=== PATIENT | male | born 1960 | race Caucasian/White ===

== ENCOUNTER 2016-08-29 09:54 | Inpatient (IN) | payer BC ==
[~2016-08-29 09:54] MED LIST: LACTATED RINGERS 1,000 ML IV SCH; SODIUM CHLORIDE 0.9% 1,000 ML IV SCH
[2016-08-29] MEDS ORDERED: HEPARIN SODIUM 1,000 UN/ML (10ML VL) ONE (12:33)
[2016-08-29] MEDS ORDERED: PHENYLEPHRINE-0.9% NACL SYG 1 MG/10 ML SYRINGE ONE (12:33)
[2016-08-29] MEDS ORDERED: fentaNYL (PF) 50 MCG/ML 2 ML AMP ONE (12:33)
[2016-08-29] MEDS ORDERED: MIDAZOLAM 2 MG/2 ML VIAL ONE (12:33)
[2016-08-29] MEDS ORDERED: ISOPROTERENOL 250 MCG/1.25 ML SYR IV ONE (12:33)
[2016-08-29] MEDS ORDERED: PROTAMINE SULFATE 10 MG/ML 5 ML VIAL IV ONE (12:33)
[2016-08-29] MEDS ORDERED: HYDROmorphone (PF) 1 MG/ML ONE (12:33)
[2016-08-29] MEDS ORDERED: HEPARIN SODIUM,PORCINE 10,000 UNIT/ML 1 ML VIAL ONE (12:33)
[2016-08-29] MEDS ORDERED: PROPOFOL 10 MG/ML 20 ML VIAL IV ONE (12:33)
[2016-08-29] MEDS ORDERED: IV FLUID CONTINUATION 1,000 ML IV ONE ×2 (13:10)
[2016-08-29] MEDS: LIDOCAINE 2% INJ 20 MG/ML SQ ONE ×2 (13:13→14:14)
[2016-08-29] MEDS ORDERED: HEPARIN SODIUM (1,000 UNIT/ML) 1,000 UNIT in SODIUM CHLORIDE 0.9% 1,000 ML IRRIGATION ONE (14:14)
[2016-08-29 17:00] LABS: Basophils % (A) 0 %; CHCM 34.5; Eosinophils # (A) 0.3 k/uL (0-0.7); Eosinophils % (A) 4 %; HCT 42.4 % (39.0-53.0); HDW 2.74; HGB 14.9 gm/dL (13.0-17.5); Luc # (Auto) 0.19; Luc % (Auto) 2; Lymphocytes # (A) 2.1 k/uL (1.0-4.8); Lymphocytes % (A) 26 %; MCH 31.5 pg (25.0-35.0); Mean Platelet Volume 6.7; Monocytes # (A) 0.3 k/uL (0-1.0); Monocytes % (A) 4 %; Neutrophils # (A) 5.3 k/uL (1.3-7.7); Neutrophils % (A) 64 %; RBC 4.71 m/uL (4.30-5.90); WBC 8.3 k/uL (3.8-10.6); WBC (Perox) 8.74
[2016-08-29 17:29] LABS: Manual Review Performed; Ovalocytes Present
[2016-08-29] MEDS ORDERED: LACTATED RINGERS 1,000 ML IV ONE ×3 (17:33→18:48)
[2016-08-29] MEDS ORDERED: ACETAMINOPHEN TAB 325 MG TAB PO PRN (18:03)
[2016-08-29] MEDS ORDERED: FAMOTIDINE 20 MG TAB PO STA (18:41)
[2016-08-29] MEDS: ACETAMINOPHEN IV (For NPO) 1,000 MG in EMPTY BAG 1 BAG IVPB ONE ×2 (18:48→19:03)
--- NOTE | 2016-08-29 18:56 | P.PCN ---
Preoperative Diagnosis: Procedure Diagnostic EP study and mapping and ablation of an anterior Accessory pathway across the mitral annulus recurrent SVT, drug refractory known deep pathway prior ablation several years back. At that time only on RF lesion resulted in temporary success and following that RF ablation was unsuccessful and eliminated the pathway despite a very detailed mapping He did well for several years on medications but has had recent episodes of SVT requiring IV adenosine in the emergency room Details of the procedure Patient was brought to the EP lab in a fasting state. Written informed consent was obtained prior to the procedure. Left shoulder area was prepped and draped as a protocol and a 6-Sing[place]an sheath was placed in the left axillary vein. Via this a decapolar catheter was positioned in the coronary sinus for pacing and recording. The right left groin were prepped and draped and 2 venous sheaths were placed in the right femoral vein and 2 venous sheaths in the left femoral vein. Diagnostic cath was replaced including high right atrial His bundle RV and intracardiac echo catheter and coronary sinus catheter. Later a long sheath was placed transseptal access was obtained left atrium and the bilateral annulus were mapped. Sinus cycle length 843 ms DE interval 178 ms QRS 97 ms QT 390 ms did AH and HV intervals within normal. Sinus node recovery time was normal. Right bundle branch block aberrancy noted with atrial pacing. AV node Wenckebach block 370 ms no delta waves no slow pathway conduction. VA Wenckebach block 300 ms. At pacing cycle length of 440 ms there was a shift in retrograde activation from concentric to eccentric retrograde conduction consistent with a left-sided accessory pathway. The earliest atrial activation was in the distalmost coronary sinus which was placed distally in the CS and it reached almost up to the 12 o'clock position. AVRT was very easily inducible with atrial extra stimulation Transseptal access was obtained LA pressure was 18/3/9 mmHg Intracardiac echo was used to identify the fossa ovalis 3-D mapping was performed. An anatomic map was obtained of the left atrium using intracardiac echo did the mitral annulus was identified and carefully delineated with intracardiac echo. Later, mapping and ablation catheter was placed in the left atrium and the mitral annulus was mapped anteriorly and laterally. Mapping was performed in sinus rhythm as well as during AVRT During sinus rhythm at around the 12 o'clock position excellent signals were obtained including a pathway potential. The atrial and midportion and the ventricular end of the pathway was identified with the pathway potential during sinus rhythm. This area was tagged in sinus rhythm. Activation mapping was performed using conventional as well as 3-D mapping using the confidence software. These points were rechecked manually to confirm the accuracy of the map. The activation map and the location of the Zoran potential was virtually superimposed The first RF ablation was performed at the location of the pathway potential but this did not eliminate the pathway. Good contact force good stability and off power of up to 40 worked was used on the mitral annulus without any impact at the site of the pathway potential. RF ablations with good contact force and power of the 40 W was used along either side of this earliest site, as well as slightly more atrially as well as more towards the ventricular end. On adjacent sites transient success was obtained repeatedly followed by recovery. Slightly lateral to the earliest site on intracardiac ultrasound there was a thick myocardial ridge just adjacent to the left atrial appendage in between the mitral annulus and the edge of the appendage. 3-D anatomic mapping was used to tag at this area. RF ablation here resulted in transient success with 2-1 block during VA pacing, subsequent to the RF delivery. The RF delivery however was only 12 seconds. There was a rise in the impedance and RF was turned off. This was a 12 second RF lesion, average power of 39 W, arise in the impedance by 87 ohms from a baseline of 136 ohms and a contact force ranging from 20-55 with an average of 31 The pericardial effusion was noted a few minutes later. There was a drop in blood pressure to about 70 mmHg. Prominent neck veins are noted The subcostal area was prepped expeditiously and using Touey needle the pericardium was successfully accessed, the wire was placed in the pericardium and confirmed in [place] position. A pigtail catheter was placed in the pericardium and the epicardium was drained successfully and expeditiously with normalization of blood pressure within the next several minutes. Heparin was stopped protamine was given catheters were pulled out from the left atrium. Initially with V pacing there was 2-1 block but once again retrograde accessory pathway conduction returned after about 10 minutes The pigtail catheter was then secured to the skin. An antibiotic pellet was used around the access site IV antibiotics were administered Intracardiac echocardiography revealed absence of any residual pericardial fluid. A total of about 300+ cc of blood was drained After all the sheaths were removed repeat 2-D echo in the recovery room revealed absence of any residual pericardial effusion Patient was quite awake during this part of the procedure was the end. At the end of the procedure and after the EP study was repeated it was explained to him in detail that this was a deep pathway that was very carefully mapped with excellent electrographic signals and inaccurate activation map with good contact force. But despite that the pathway would continue to return and recover in conduction Final diagnosis Retrogradely conducting accessory pathway, anterior location mitral annulus deep pathway RF ablations resulting only in transient success. The site where the Zoran potentials were identified along the atrial and, midportion of the pathway and the ventricular end did not result in elimination of retrograde conduction along the pathway. Patient was stable at the end of the procedure were alert and oriented. This was discussed with the patient's in detail. Repetitive RF lesions in the mitral annular area resulting in a small perforation resulting in pericardial tamponade that was expeditiously and successfully tackled. Postoperative Diagnosis: Procedure(s) Performed: Implants: Indications for Procedure: Operative Findings: Description of Procedure:
[2016-08-29] MEDS ORDERED: HYDROmorphone 1 MG/ML 1 ML SYRINGE IVP ONE (18:57)
[2016-08-29] MEDS ORDERED: COLCHICINE 0.6 MG TAB PO ONE (19:00)
[2016-08-29 19:43] LABS: Glucose,Whole Blood 107 mg/dL (75-99)
[2016-08-29 22:13] LABS: Basophils % (A) 0 %; CHCM 34.5; Eosinophils % (A) 0 %; HCT 42.1 % (39.0-53.0); HDW 2.74; HGB 14.6 gm/dL (13.0-17.5); Luc # (Auto) 0.13; Luc % (Auto) 1; Lymphocytes # (A) 0.7 k/uL (1.0-4.8); Lymphocytes % (A) 5 %; MCH 31.4 pg (25.0-35.0); MCHC 34.8 g/dL (31.0-37.0); MCV 90.3 fL (80.0-100.0); Mean Platelet Volume 6.5; Monocytes # (A) 0.4 k/uL (0-1.0); Monocytes % (A) 3 %; Neutrophils # (A) 12.4 k/uL (1.3-7.7); Neutrophils % (A) 91 %; RBC 4.66 m/uL (4.30-5.90); RDW 12.8 % (11.5-15.5); WBC 13.5 k/uL (3.8-10.6); WBC (Perox) 14.77
[2016-08-29] MEDS ORDERED: HYDROmorphone 1 MG/ML 1 ML SYRINGE IVP PRN ×2 (22:58→23:45)
[2016-08-29] MEDS: HYDROcodone/APAP 5-325MG 1 EACH TAB PO PRN (23:00)
[2016-08-29] MEDS ORDERED: ONDANSETRON 4 MG/2 ML VIAL IVP PRN (23:24)
[2016-08-30] MEDS: CLINDAMYCIN 600 MG in DEXTROSE 5% IN WATER 50 ML IVPB SCH ×8 (00:20→18:53)
[2016-08-30] MEDS ORDERED: HYDROmorphone 1 MG/ML 1 ML SYRINGE IVP PRN ×3 (00:40→04:55)
[2016-08-30] MEDS: TEMAZEPAM 30 MG CAP PO SCH ×2 (03:29→23:29)
[2016-08-30] MEDS: HYDROcodone/APAP 5-325MG 1 EACH TAB PO PRN ×2 (03:30→09:54)
[2016-08-30] MEDS ORDERED: HYDROmorphone 1 MG/ML 1 ML SYRINGE IVP STA (04:30)
[2016-08-30 04:45] LABS: Basophils % (A) 0 %; CH 31.3; CHCM 34.3; Eosinophils % (A) 0 %; HCT 43.8 % (39.0-53.0); HDW 2.75; HGB 15.2 gm/dL (13.0-17.5); Luc # (Auto) 0.11; Luc % (Auto) 1; Lymphocytes # (A) 0.7 k/uL (1.0-4.8); Lymphocytes % (A) 6 %; MCH 31.7 pg (25.0-35.0); MCHC 34.6 g/dL (31.0-37.0); MCV 91.7 fL (80.0-100.0); Mean Platelet Volume 7.3; Monocytes # (A) 0.5 k/uL (0-1.0); Monocytes % (A) 4 %; Neutrophils # (A) 11.2 k/uL (1.3-7.7); Neutrophils % (A) 89 %; RBC 4.78 m/uL (4.30-5.90); RDW 13.1 % (11.5-15.5); WBC 12.5 k/uL (3.8-10.6); WBC (Perox) 13.06
[2016-08-30 04:55] LABS: ALT 37 U/L (21-72); AST 56 U/L (17-59); Alkaline Phosphatase 51 U/L (38-126); Anion Gap 10 mmol/L; Blood Urea Nitrogen 16 mg/dL (9-20); Calcium 8.9 mg/dL (8.4-10.2); Carbon Dioxide 25 mmol/L (22-30); Chloride 102 mmol/L (98-107); Glucose 123 mg/dL (74-99); Non-African American GFR(MDRD) >60 (>60 ml/min/1.73 sqM); Potassium 4.6 mmol/L (3.5-5.1); Sodium 137 mmol/L (137-145); Total Bilirubin 1.5 mg/dL (0.2-1.3)
[2016-08-30] MEDS: COLCHICINE 0.6 MG TAB PO SCH ×2 (05:36→20:54)
[2016-08-30] MEDS ORDERED: ACETAMINOPHEN IV (For NPO) 1,000 MG in EMPTY BAG 1 BAG IVPB STA (05:42)
[2016-08-30 06:53] VITALS: BMI 23.7
[2016-08-30] MEDS: HYDROmorphone 2 MG/ML 1 ML SYRINGE IVP PRN ×4 (07:57→23:23)
[2016-08-30] MEDS: SODIUM CHLORIDE 0.9% 1,000 ML IV SCH ×3 (08:04→22:44)
[2016-08-30] MEDS: FAMOTIDINE 20 MG TAB PO SCH ×2 (08:04→20:54)
[2016-08-30] MEDS: VERAPAMIL 40 MG TAB PO SCH ×2 (08:05→20:54)
--- NOTE | 2016-08-30 08:21 | P.PN ---
Subjective Principal diagnosis: Patient is sitting up in chair. His pain is better after pain medications. Last night he was complaining of a fair amount of pain and was given Dilaudid. His blood pressure remained stable all through the night. He's had a total drainage of about 600 mL of heme in the drainage bag. No JVD on examination pericardial rub audible rate last night I have repeated his 2-D echo and it showed a very small pericardial effusion. He did receive a unit of blood. His hemoglobin is stable labs are within normal limits. Urine output is good. Rhythm is been normal no SVT Groin site is healed well no hematoma Lower extremities within normal limits good pulses Impression Orthodromic reentry, drug refractory Prior mapping and ablation procedure several years back with initial transient success but thereafter the pathway returned and could not be ablated. My impression was that this was a deep focus and I treated him with medications but he is having recent breakthrough episodes Detailed mapping yesterday of the mitral annulus with excellent electrograms with demonstration of the Zoran Potential associated with the atrial and, associated with mid pathway and associated with ventricular end/insertion of the pathway. RF ablation at the site was not successful. Transient success similar to last procedure around this area but with return of retrograde accessory pathway conduction within minutes RF ablation at the junction between the mitral annulus and the base of the left atrial appendage (thick portion noted on intracardiac ultrasound) for 12 seconds resulted in elimination of the pathway but RF lesion had to be terminated prematurely on account of an impedance rise. Subsequently after a few minutes he developed pericardial effusion that was successfully and percutaneously drained Plan No anticoagulation or antiplatelet agents, continue IV antibiotics, pain medications, pain service consult, CT surgery evaluation today, discussed with CT surgery team We will continue to observe. Bag will be changed daily and will be left in place oral verapamil has been started patient's blood pressure has been stable 2-D echo today, daily labs and serial echoes Discussed with the patient Objective - Vital Signs Vital signs: Vital Signs Temp 97.8 F 08/30/16 07:00 Pulse 81 08/30/16 07:00 Resp 15 08/30/16 07:00 BP 142/89 08/30/16 07:00 Pulse Ox 96 08/30/16 07:00 Intake & Output 08/29/16 08/30/16 08/30/16 18:59 06:59 18:59 Intake Total 2103 3180 150 Output Total 950 2005 95 Balance 1153 1175 55 Weight 75 kg 75 kg Intake: IV 2103 2260 150 ACETAMINOPHEN IV (For NPO 100 ) 1,000 mg In Empty Bag 1 bag @ 400 mls/hr IVPB ONCE ONE Rx#:[id number] Clindamycin 600 mg In 100 Dextrose 5% in Water 50 ml @ 100 mls/hr IVPB Q6HR [facility] Rx#:[id number] Lactated Ringers 1,000 ml 60 @ 20 mls/hr IV .Q24H [facility] Rx#:[id number] Lactated Ringers 1,000 ml 1000 As IV .STK-MED ONE Rx#: [id number] Sodium Chloride 0.9% 1, 900 150 000 ml @ 20 mls/hr IV . Q24H [facility] Rx#:[id number] Intake, IV Titration 20 Amount Lactated Ringers 1,000 ml 20 As IV .STK-MED ONE Rx#: [id number] Oral 65 Blood Product 835 Rc As-1 Unit 310 [id number] Output: Drainage 540 Medial Chest 540 Urine 950 1465 95 Other: Voiding Method Indwelling Catheter - Labs CBC & Chem 7: 08/30/16 04:35 08/30/16 04:35 Labs: Abnormal Lab Results - Last 24 Hours (Table) 08/29/16 08/29/16 08/29/16 Range/Units 16:45 19:41 22:00 WBC 13.5 H (3.8-10.6) k/uL Neutrophils # 12.4 H (1.3-7.7) k/uL Lymphocytes # 0.7 L (1.0-4.8) k/uL Glucose (74-99) mg/dL POC Glucose (mg/dL) 107 H (75-99) mg/dL Total Bilirubin (0.2-1.3) mg/dL Total Protein (6.3-8.2) g/dL Crossmatch See Detail 08/30/16 08/30/16 Range/Units 04:35 04:35 WBC 12.5 H (3.8-10.6) k/uL Neutrophils # 11.2 H (1.3-7.7) k/uL Lymphocytes # 0.7 L (1.0-4.8) k/uL Glucose 123 H (74-99) mg/dL POC Glucose (mg/dL) (75-99) mg/dL Total Bilirubin 1.5 H (0.2-1.3) mg/dL Total Protein 6.0 L (6.3-8.2) g/dL Crossmatch
--- NOTE | 2016-08-30 10:33 | ECHOF ---
Referral Reason:pericardium MEASUREMENTS -------- HEIGHT: 182.9 cm WEIGHT: 74.8 kg BP: 141/89 FINDINGS -------- Sinus rhythm. Limited Studyfor pericarial effusion. There is no pericardial effusion. CONCLUSIONS -------- 1. Sinus rhythm. 2. Limited Study for pericardial effusion 3. There is no pericardial effusion. PAPER CLEANER: Jamaica Gonzalez RDCS
--- NOTE | 2016-08-30 10:39 | ECHOF ---
Referral Reason:pericardial eff MEASUREMENTS -------- HEIGHT: 177.8 cm WEIGHT: 74.8 kg BP: FINDINGS -------- Sinus rhythm. This was a technically good study. Limited Study Evaluate ejection fraction and pericardial effusion. Overall left ventricular systolic function is normal with, an EF between 60 - 65 %. There is no pericardial effusion. CONCLUSIONS -------- 1. Sinus rhythm. 2. This was a technically good study. 3. Limited Study 4. Overall left ventricular systolic function is normal with, an EF between 60 - 65 %. 5. There is no pericardial effusion. ICER MACHINE OPERATOR: Lamberto Browne RDCS
--- NOTE | 2016-08-30 11:43 | P.GSCN ---
History of Present Illness Consult date: 08/30/16 Reason for Consult: Pericardial effusion Requesting physician: Joao Cobian History of present illness: This 56-year-old gentleman has been followed with Dr. Cobian from electrophysiology for supraventricular tachycardia. He has had an ablation in the past with initial transient success but with recent return of SVT. He has been tried on several medications without successful treatment of his arrhythmia. He was recommended to have an EP study and ablation which took place yesterday. During the procedure he developed a pericardial effusion which was drained by Dr. Cobian. Dr. Vaughn from cardiothoracic surgery was consulted regarding continued management of the pericardial effusion. Review of Systems 14 point review systems was completed and was negative except as noted. - Cardiovascular Reports as per HPI Past Medical History Past Medical History: Asthma, Cancer, Hyperlipidemia, Hypertension, Supraventricular Tachycardia (SVT) Additional Past Medical History / Comment(s): varicose veins, see Dr Cobian H& P. skin cancer History of Any Multi-Drug Resistant Organisms: None Reported Past Surgical History: Cardiac Ablation, Orthopedic Surgery Additional Past Surgical History / Comment(s): moles removed, arthroscopy left knee Past Anesthesia/Blood Transfusion Reactions: Motion Sickness Past Psychological History: No Psychological Hx Reported Smoking Status: Never smoker - Past Family History Mother Family Medical History: Cancer Sister(s) Family Medical History: Cancer Father Family Medical History: Cancer, Deep Vein Thrombosis (DVT) Medications and Allergies Home Medications Medication Instructions Recorded Confirmed Type Aspirin 325 mg PO DAILY 08/23/16 08/29/16 History Cyanocobalamin [Vitamin B-12] 500 mcg PO DAILY 08/23/16 08/29/16 History Diltiazem HCl [Cardizem Cd] 120 mg PO DAILY 08/23/16 08/29/16 History Fish Oil/Dha/Epa [Fish Oil 1,200 1 cap PO BID 08/23/16 08/29/16 History mg Fish Oil] Flecainide Acetate [Tambocor] 100 mg PO Q12HR 08/23/16 08/29/16 History Multivitamins, Thera [Multivitamin 1 tab PO DAILY 08/23/16 08/29/16 History (formulary)] Ubidecarenone [Co Q-10] 200 mg PO DAILY 08/23/16 08/29/16 History Allergies Allergy/AdvReac Type Severity Reaction Status Date / Time Penicillins Allergy Rash/Hives Verified 08/23/16 11:09 Surgical - Exam Vital Signs Pulse Resp BP Pulse Ox 72 20 149/93 97 08/29/16 10:37 08/29/16 10:37 08/29/16 10:37 08/29/16 10:37 - General well developed, well nourished, no distress - Eyes PERRL, normal ocular movement - ENT no hearing loss - Neck trachea midline - Respiratory normal expansion, normal respiratory effort, clear to auscultation - Cardiovascular Rhythm: regular Heart Sounds: normal: S1, S2 - Abdomen Abdomen: soft, non tender, bowel sounds - Genitourinary Deferred - Rectum Deferred - Integumentary no rash, no growths - Neurologic normal coordination, normal sensation - Musculoskeletal normal gait, normal posture - Psychiatric oriented to time, oriented to person, oriented to place, speech is normal, memory intact Results - Labs 08/30/16 04:35 08/30/16 04:35 Abnormal Lab Results - Last 24 Hours (Table) 08/29/16 08/29/16 08/29/16 Range/Units 16:45 19:41 22:00 WBC 13.5 H (3.8-10.6) k/uL Neutrophils # 12.4 H (1.3-7.7) k/uL Lymphocytes # 0.7 L (1.0-4.8) k/uL Glucose (74-99) mg/dL POC Glucose (mg/dL) 107 H (75-99) mg/dL Total Bilirubin (0.2-1.3) mg/dL Total Protein (6.3-8.2) g/dL Crossmatch See Detail 08/30/16 08/30/16 Range/Units 04:35 04:35 WBC 12.5 H (3.8-10.6) k/uL Neutrophils # 11.2 H (1.3-7.7) k/uL Lymphocytes # 0.7 L (1.0-4.8) k/uL Glucose 123 H (74-99) mg/dL POC Glucose (mg/dL) (75-99) mg/dL Total Bilirubin 1.5 H (0.2-1.3) mg/dL Total Protein 6.0 L (6.3-8.2) g/dL Crossmatch Diabetes panel 08/30/16 Range/Units 04:35 Sodium 137 (137-145) mmol/L Potassium 4.6 (3.5-5.1) mmol/L Chloride 102 (98-107) mmol/L Carbon Dioxide 25 (22-30) mmol/L BUN 16 (9-20) mg/dL Creatinine 0.70 (0.66-1.25) mg/dL Glucose 123 H (74-99) mg/dL Calcium 8.9 (8.4-10.2) mg/dL AST 56 (17-59) U/L ALT 37 (21-72) U/L Alkaline Phosphatase 51 (38-126) U/L Total Protein 6.0 L (6.3-8.2) g/dL Albumin 3.9 (3.5-5.0) g/dL Calcium panel 08/30/16 Range/Units 04:35 Calcium 8.9 (8.4-10.2) mg/dL Albumin 3.9 (3.5-5.0) g/dL Pituitary panel 08/30/16 Range/Units 04:35 Sodium 137 (137-145) mmol/L Potassium 4.6 (3.5-5.1) mmol/L Chloride 102 (98-107) mmol/L Carbon Dioxide 25 (22-30) mmol/L BUN 16 (9-20) mg/dL Creatinine 0.70 (0.66-1.25) mg/dL Glucose 123 H (74-99) mg/dL Calcium 8.9 (8.4-10.2) mg/dL Adrenal panel 08/30/16 Range/Units 04:35 Sodium 137 (137-145) mmol/L Potassium 4.6 (3.5-5.1) mmol/L Chloride 102 (98-107) mmol/L Carbon Dioxide 25 (22-30) mmol/L BUN 16 (9-20) mg/dL Creatinine 0.70 (0.66-1.25) mg/dL Glucose 123 H (74-99) mg/dL Calcium 8.9 (8.4-10.2) mg/dL Total Bilirubin 1.5 H (0.2-1.3) mg/dL AST 56 (17-59) U/L ALT 37 (21-72) U/L Alkaline Phosphatase 51 (38-126) U/L Total Protein 6.0 L (6.3-8.2) g/dL Albumin 3.9 (3.5-5.0) g/dL Assessment and Plan (1) History of supraventricular tachycardia Status: Acute (2) History of prior ablation treatment Status: Acute (3) Pericardial effusion Status: Acute (4) Hypertension Status: Acute Plan: The patient was seen and examined this morning, he is in no acute distress. Dr. Vaughn was present yesterday in the electrophysiology lab when the patient developed pericardial effusion. The patient had a repeat echocardiogram last night which demonstrated a very small pericardial effusion, as well as this morning which demonstrated no pericardial effusion. He's had a total of 600 mL drainage overnight from the pericardium. His vital signs are all stable, his urine output is adequate. His only complaints this morning were of pain which seems to be better controlled. We will continue to monitor his pericardial output and make recommendations as patient progresses. Thank you Dr. Cobian for this consult. We look forward to working with you in the care of your patient.
[2016-08-30] MEDS ORDERED: HEPARIN SODIUM,PORCINE 10,000 UNIT/ML 1 ML VIAL ONE (12:33)
[2016-08-30] MEDS ORDERED: ISOPROTERENOL 250 MCG/1.25 ML SYR IV ONE (12:33)
[2016-08-30] MEDS ORDERED: PROTAMINE SULFATE 10 MG/ML 5 ML VIAL IV ONE (12:33)
[2016-08-30] MEDS ORDERED: fentaNYL (PF) 50 MCG/ML 2 ML AMP ONE (12:33)
[2016-08-30] MEDS ORDERED: HYDROmorphone (PF) 1 MG/ML ONE (12:33)
[2016-08-30] MEDS ORDERED: PHENYLEPHRINE-0.9% NACL SYG 1 MG/10 ML SYRINGE ONE (12:33)
[2016-08-30] MEDS ORDERED: PROPOFOL 10 MG/ML 20 ML VIAL IV ONE (12:33)
[2016-08-30] MEDS ORDERED: MIDAZOLAM 2 MG/2 ML VIAL ONE (12:33)
[2016-08-30] MEDS ORDERED: HEPARIN SODIUM 1,000 UN/ML (10ML VL) ONE (12:33)
[2016-08-30] MEDS: HYDROcodone/APAP 7.5-325MG 1 EACH TAB PO PRN (14:11)
[2016-08-31 04:36] LABS: Basophils % (A) 0 %; CH 31.5; CHCM 34.7; Eosinophils % (A) 0 %; HCT 37.2 % (39.0-53.0); HDW 2.72; HGB 12.9 gm/dL (13.0-17.5); Luc # (Auto) 0.21; Luc % (Auto) 2; Lymphocytes # (A) 0.8 k/uL (1.0-4.8); Lymphocytes % (A) 8 %; MCH 31.6 pg (25.0-35.0); MCHC 34.6 g/dL (31.0-37.0); MCV 91.4 fL (80.0-100.0); Mean Platelet Volume 7.6; Monocytes # (A) 0.6 k/uL (0-1.0); Monocytes % (A) 6 %; Neutrophils # (A) 8.4 k/uL (1.3-7.7); Neutrophils % (A) 84 %; RBC 4.07 m/uL (4.30-5.90); RDW 13.7 % (11.5-15.5); WBC 10.1 k/uL (3.8-10.6); WBC (Perox) 10.82
[2016-08-31 04:37] LABS: INR 1.2 (<1.1); Prothrombin Time 12.3 sec (9.0-12.0)
[2016-08-31 04:43] LABS: ALT 28 U/L (21-72); AST 35 U/L (17-59); Alkaline Phosphatase 43 U/L (38-126); Anion Gap 7 mmol/L; Blood Urea Nitrogen 18 mg/dL (9-20); Calcium 8.2 mg/dL (8.4-10.2); Carbon Dioxide 26 mmol/L (22-30); Chloride 102 mmol/L (98-107); Glucose 113 mg/dL (74-99); Magnesium 1.6 mg/dL (1.6-2.3); Non-African American GFR(MDRD) >60 (>60 ml/min/1.73 sqM); Potassium 4.4 mmol/L (3.5-5.1); Sodium 135 mmol/L (137-145); Total Bilirubin 0.9 mg/dL (0.2-1.3); Total Protein 5.3 g/dL (6.3-8.2)
[2016-08-31] MEDS ORDERED: Magnesium Replacement Protocol 1 EACH MISC MISCELLANE PRN (06:56)
[2016-08-31] MEDS: SODIUM CHLORIDE 0.9% 1,000 ML IV SCH ×3 (06:58→20:58)
[2016-08-31] MEDS: MAGNESIUM SULFATE-D5W PMX 1 GM in DEXTROSE/WATER 1 100ML.BAG IVPB SCH ×2 (07:34→08:35)
--- NOTE | 2016-08-31 08:11 | P.PN ---
Subjective Patient is doing well. He has minimal pain. He is very comfortably lying in bed. His 2-D echo this morning showed minimal pericardial effusion no dizziness lightheadedness no pleuritic chest discomfort. Labs are reviewed white count 10.1, hemoglobin 13, late lead count 147,000, sodium 135 potassium normal BUN/creatinine normal magnesium which is 1.6 which is being replaced him a calcium 8.2 Vitals of been stable blood pressure 116/82 mmHg pulse rate in the 80s and 90s and neck examination is normal no JVD heart sounds I do not hear a click eyedrop today Breath sounds are normal and clear no rhonchi no crackles abdomen is soft Impression Orthodromic AVRT, retrogradely conducting accessory pathway deep focus RF related pericardial tamponade with successful percutaneous drainage Serous sanguinous fluid of about 30 mL since last night Plan Continue colchicine, reduce the dose of Pepcid to 20 mg by mouth daily Continue IV antibiotics for now, continue verapamil 40 mg by mouth twice a day I will observe the amount of drainage today and make a decision regarding removal of the percutaneous drain either today or tomorrow. Continue ICU monitoring Objective - Vital Signs Vital signs: Vital Signs Temp 98.5 F 08/31/16 04:00 Pulse 92 08/31/16 07:00 Resp 17 08/31/16 07:00 BP 116/82 08/31/16 07:00 Pulse Ox 93 L 08/31/16 07:00 Intake & Output 08/30/16 08/31/16 08/31/16 18:59 06:59 18:59 Intake Total 1170 1350 175 Output Total 725 615 50 Balance 445 735 125 Weight 75 kg 80.7 kg Intake: IV 270 1175 175 Clindamycin 600 mg In 100 Dextrose 5% in Water 50 ml @ 100 mls/hr IVPB Q6HR [facility] Rx#:[id number] Magnesium Sulfate-D5w Pmx 100 1 gm In Dextrose/Water 1 100ml.bag @ 100 mls/hr IVPB Q1H [facility] Rx#: [id number] Sodium Chloride 0.9% 1, 1175 75 000 ml @ 150 mls/hr IV . Q6H40M [facility] Rx#:[id number] Sodium Chloride 0.9% 1, 170 000 ml @ 20 mls/hr IV . Q24H [facility] Rx#:[id number] Intake, IV Titration 900 75 Amount Sodium Chloride 0.9% 1, 900 75 000 ml @ 150 mls/hr IV . Q6H40M [facility] Rx#:[id number] Oral 100 Output: Drainage 35 0 Medial Chest 35 0 Urine 725 580 50 Other: Voiding Method Indwelling Catheter Indwelling Catheter - Labs CBC & Chem 7: 08/31/16 04:08 08/31/16 04:08 Labs: Abnormal Lab Results - Last 24 Hours (Table) 08/31/16 08/31/16 08/31/16 Range/Units 04:08 04:08 04:08 RBC 4.07 L (4.30-5.90) m/uL Hgb 12.9 L (13.0-17.5) gm/dL Hct 37.2 L (39.0-53.0) % Plt Count 147 L (150-450) k/uL Neutrophils # 8.4 H (1.3-7.7) k/uL Lymphocytes # 0.8 L (1.0-4.8) k/uL PT 12.3 H (9.0-12.0) sec Sodium 135 L (137-145) mmol/L Creatinine 0.64 L (0.66-1.25) mg/dL Glucose 113 H (74-99) mg/dL Calcium 8.2 L (8.4-10.2) mg/dL Total Protein 5.3 L (6.3-8.2) g/dL Albumin 3.1 L (3.5-5.0) g/dL
[2016-08-31] MEDS: COLCHICINE 0.6 MG TAB PO SCH ×2 (08:35→20:57)
[2016-08-31] MEDS: FAMOTIDINE 20 MG TAB PO SCH (08:35)
[2016-08-31] MEDS: VERAPAMIL 40 MG TAB PO SCH ×2 (08:36→20:59)
[2016-08-31] MEDS: HYDROcodone/APAP 7.5-325MG 1 EACH TAB PO PRN ×4 (08:40→22:34)
--- NOTE | 2016-08-31 09:22 | P.PN ---
<Jamaica Arana - Last Filed: 08/31/16 09:17> Subjective Principal diagnosis: Pericardial effusion POD #2 placement of pigtail catheter to drain effusion. Patient currently sitting up in chair in no acute distress. States his pain is better controlled. Blood pressure under better control. Drainage very minimal from pigtail catheter. Objective - Vital Signs Vital signs: Vital Signs Temp 98.3 F 08/31/16 08:00 Pulse 101 H 08/31/16 08:00 Resp 29 H 08/31/16 08:00 BP 131/78 08/31/16 08:00 Pulse Ox 95 08/31/16 08:00 Intake & Output 08/30/16 08/31/16 08/31/16 18:59 06:59 18:59 Intake Total 1170 1350 350 Output Total 725 615 125 Balance 445 735 225 Weight 75 kg 80.7 kg Intake: IV 270 1175 175 Clindamycin 600 mg In 100 Dextrose 5% in Water 50 ml @ 100 mls/hr IVPB Q6HR [facility] Rx#:[id number] Magnesium Sulfate-D5w Pmx 100 1 gm In Dextrose/Water 1 100ml.bag @ 100 mls/hr IVPB Q1H [facility] Rx#: [id number] Sodium Chloride 0.9% 1, 1175 75 000 ml @ 150 mls/hr IV . Q6H40M [facility] Rx#:[id number] Sodium Chloride 0.9% 1, 170 000 ml @ 20 mls/hr IV . Q24H [facility] Rx#:[id number] Intake, IV Titration 900 75 175 Amount Magnesium Sulfate-D5w Pmx 100 1 gm In Dextrose/Water 1 100ml.bag @ 100 mls/hr IVPB Q1H [facility] Rx#: [id number] Sodium Chloride 0.9% 1, 900 75 000 ml @ 150 mls/hr IV . Q6H40M [facility] Rx#:[id number] Sodium Chloride 0.9% 1, 75 000 ml @ 75 mls/hr IV . [id number] [facility] Rx#:[id number] Oral 100 Output: Drainage 35 0 Medial Chest 35 0 Urine 725 580 125 Other: Voiding Method Indwelling Catheter Indwelling Catheter - Constitutional General appearance: Present: cooperative, no acute distress - Respiratory Details: Lungs sounds clear bilaterally. Respirations even, nonlabored. Currently on room air with oxygen saturation 95%. - Cardiovascular Details: S1, S2 present. Regular rate and rhythm, normal sinus rhythm on telemetry. Mediastinal pigtail to dependent drainage, approximately 35 mL sanguineous drainage overnight. - Gastrointestinal Gastrointestinal Comment(s): Abdomen soft, nontender, nondistended. Active bowel sounds 4 quadrants. Tolerating diet. - Genitourinary Genitourinary Comment(s): Lamb present draining clear, yellow urine. Output 10-75 mL overnight. - Musculoskeletal Musculoskeletal: Present: gait normal, strength equal bilaterally - Psychiatric Psychiatric: Present: A&O x's 3, appropriate affect, intact judgment & insight - Allied health notes Allied health notes reviewed: nursing - Labs CBC & Chem 7: 08/31/16 04:08 08/31/16 04:08 Labs: Abnormal Lab Results - Last 24 Hours (Table) 08/31/16 08/31/16 08/31/16 Range/Units 04:08 04:08 04:08 RBC 4.07 L (4.30-5.90) m/uL Hgb 12.9 L (13.0-17.5) gm/dL Hct 37.2 L (39.0-53.0) % Plt Count 147 L (150-450) k/uL Neutrophils # 8.4 H (1.3-7.7) k/uL Lymphocytes # 0.8 L (1.0-4.8) k/uL PT 12.3 H (9.0-12.0) sec Sodium 135 L (137-145) mmol/L Creatinine 0.64 L (0.66-1.25) mg/dL Glucose 113 H (74-99) mg/dL Calcium 8.2 L (8.4-10.2) mg/dL Total Protein 5.3 L (6.3-8.2) g/dL Albumin 3.1 L (3.5-5.0) g/dL Assessment and Plan (1) History of supraventricular tachycardia Status: Acute (2) History of prior ablation treatment Status: Acute (3) Pericardial effusion Status: Acute (4) Hypertension Status: Acute Plan: 1. Anticipate discontinuing mediastinal pigtail today. 2. Anticipate discontinuing Lamb today. 3. Medical management per primary service. 4. Increase activity, ambulate in hallway. 5. Will continue to monitor. Anticipate discharge in 24-48 hours. Time with Patient: Greater than 30 <Ethan Vaughn - Last Filed: 08/31/16 10:31> Objective - Vital Signs Vital signs: Vital Signs Temp 98.3 F 08/31/16 08:00 Pulse 98 08/31/16 10:00 Resp 17 08/31/16 10:00 BP 138/78 08/31/16 10:00 Pulse Ox 93 L 08/31/16 10:00 Intake & Output 08/30/16 08/31/16 08/31/16 18:59 06:59 18:59 Intake Total 1170 1350 500 Output Total 725 615 450 Balance 445 735 50 Weight 75 kg 80.7 kg 80.7 kg Intake: IV 270 1175 175 Clindamycin 600 mg In 100 Dextrose 5% in Water 50 ml @ 100 mls/hr IVPB Q6HR [facility] Rx#:[id number] Magnesium Sulfate-D5w Pmx 100 1 gm In Dextrose/Water 1 100ml.bag @ 100 mls/hr IVPB Q1H [facility] Rx#: [id number] Sodium Chloride 0.9% 1, 1175 75 000 ml @ 150 mls/hr IV . Q6H40M [facility] Rx#:[id number] Sodium Chloride 0.9% 1, 170 000 ml @ 20 mls/hr IV . Q24H [facility] Rx#:[id number] Intake, IV Titration 900 75 325 Amount Magnesium Sulfate-D5w Pmx 100 1 gm In Dextrose/Water 1 100ml.bag @ 100 mls/hr IVPB Q1H [facility] Rx#: [id number] Sodium Chloride 0.9% 1, 900 75 000 ml @ 150 mls/hr IV . Q6H40M [facility] Rx#:[id number] Sodium Chloride 0.9% 1, 225 000 ml @ 75 mls/hr IV . [id number] [facility] Rx#:[id number] Oral 100 Output: Drainage 35 0 Medial Chest 35 0 Urine 725 580 450 Other: Voiding Method Indwelling Catheter Indwelling Catheter - Labs CBC & Chem 7: 08/31/16 04:08 08/31/16 04:08 Labs: Abnormal Lab Results - Last 24 Hours (Table) 08/31/16 08/31/16 08/31/16 Range/Units 04:08 04:08 04:08 RBC 4.07 L (4.30-5.90) m/uL Hgb 12.9 L (13.0-17.5) gm/dL Hct 37.2 L (39.0-53.0) % Plt Count 147 L (150-450) k/uL Neutrophils # 8.4 H (1.3-7.7) k/uL Lymphocytes # 0.8 L (1.0-4.8) k/uL PT 12.3 H (9.0-12.0) sec Sodium 135 L (137-145) mmol/L Creatinine 0.64 L (0.66-1.25) mg/dL Glucose 113 H (74-99) mg/dL Calcium 8.2 L (8.4-10.2) mg/dL Total Protein 5.3 L (6.3-8.2) g/dL Albumin 3.1 L (3.5-5.0) g/dL Assessment and Plan Plan: The patient was seen and examined. I agree with the above assessment and plan. Overall he has been stable overnight. His hemoglobin is 12.9 today. His blood pressure has been adequate. His mediastinal drain has put out less than 100 mL in the last 24 hours. We will continue with observation for now but he can likely be transferred to [facility].
--- NOTE | 2016-08-31 14:24 | ECHOF ---
Referral Reason:pericardial effusion MEASUREMENTS -------- HEIGHT: 162.6 cm WEIGHT: 78.0 kg BP: 121/81 IVC: 2.1 cm FINDINGS -------- Sinus rhythm. This was a technically good study. Limited Study Overall left ventricular systolic function is normal with, an EF between 55 - 60 %. There is a trivial pericardial effusion present. CONCLUSIONS -------- 1. Sinus rhythm. 2. This was a technically good study. 3. Limited Study 4. Overall left ventricular systolic function is normal with, an EF between 55 - 60 %. 5. There is a trivial pericardial effusion present. ASSIGNMENT DESK ASSISTANT: Mamie Vargas RDCS
[2016-08-31] MEDS: TEMAZEPAM 30 MG CAP PO SCH (20:58)
[2016-09-01 05:37] LABS: Basophils % (A) 0 %; CH 31.3; CHCM 34.4; Eosinophils # (A) 0.1 k/uL (0-0.7); Eosinophils % (A) 1 %; HCT 34.6 % (39.0-53.0); HDW 2.64; HGB 12.1 gm/dL (13.0-17.5); Luc # (Auto) 0.22; Luc % (Auto) 3; Lymphocytes # (A) 1.1 k/uL (1.0-4.8); Lymphocytes % (A) 15 %; MCV 91.4 fL (80.0-100.0); Mean Platelet Volume 7.1; Monocytes # (A) 0.5 k/uL (0-1.0); Monocytes % (A) 7 %; Neutrophils # (A) 5.3 k/uL (1.3-7.7); Neutrophils % (A) 73 %; RBC 3.79 m/uL (4.30-5.90); RDW 13.5 % (11.5-15.5); WBC 7.2 k/uL (3.8-10.6); WBC (Perox) 7.53
[2016-09-01 05:46] LABS: ALT 53 U/L (21-72); AST 52 U/L (17-59); Alkaline Phosphatase 68 U/L (38-126); Anion Gap 5 mmol/L; Blood Urea Nitrogen 12 mg/dL (9-20); Calcium 8.3 mg/dL (8.4-10.2); Carbon Dioxide 28 mmol/L (22-30); Chloride 104 mmol/L (98-107); Glucose 85 mg/dL (74-99); Magnesium 1.8 mg/dL (1.6-2.3); Non-African American GFR(MDRD) >60 (>60 ml/min/1.73 sqM); Phosphorous 1.6 mg/dL (2.5-4.5); Potassium 3.9 mmol/L (3.5-5.1); Sodium 137 mmol/L (137-145); Total Bilirubin 0.8 mg/dL (0.2-1.3); Total Protein 5.2 g/dL (6.3-8.2)
[2016-09-01] MEDS ORDERED: Potassium Replacement Protocol 1 EACH MISC MISCELLANE PRN (06:22)
[2016-09-01] MEDS ORDERED: POTASSIUM CHLORIDE ER 20 MEQ TAB.ER PO SCH (07:00)
[2016-09-01] MEDS: HYDROcodone/APAP 7.5-325MG 1 EACH TAB PO PRN (07:55)
[2016-09-01] MEDS: MAGNESIUM SULFATE-D5W PMX 1 GM in DEXTROSE/WATER 1 100ML.BAG IVPB SCH ×2 (07:55→10:06)
[2016-09-01] MEDS: COLCHICINE 0.6 MG TAB PO SCH ×2 (07:56→22:22)
[2016-09-01] MEDS: SODIUM CHLORIDE 0.9% 1,000 ML IV SCH (07:57)
[2016-09-01] MEDS: FAMOTIDINE 20 MG TAB PO SCH (07:57)
[2016-09-01] MEDS: VERAPAMIL 40 MG TAB PO SCH ×2 (07:57→22:22)
--- NOTE | 2016-09-01 08:35 | P.PN ---
Subjective Is doing well. He is sitting up comfortably in a chair. No pain. He has not received any narcotics over the last 24 hours. Small amount of drainage through the pericardial drain. No dizziness lightheadedness blood pressure is normal heart rates are normal no SVT Heart sounds no pericardial rub no murmurs no gallops Breath sounds are normal no rhonchi no crackles Extremities warm no edema Abdomen soft nontender And the pericardial drain was removed under sterile precautions. Serous discharge was noted from the access site and this area was dressed. Plan Oral antibiotics clindamycin 300 mg every 8 hours by mouth Continue colchicine Replace phosphorus and magnesium Telemetry monitoring may go to telemetry today, 2-D echo tomorrow and likely discharge tomorrow Follow-up thereafter Objective - Vital Signs Vital signs: Vital Signs Temp 98.1 F 09/01/16 05:00 Pulse 85 09/01/16 06:00 Resp 13 09/01/16 06:00 BP 131/81 09/01/16 06:00 Pulse Ox 96 09/01/16 06:00 Intake & Output 08/31/16 09/01/16 09/01/16 18:59 06:59 18:59 Intake Total 725 820 Output Total 1490 0 Balance -765 820 Weight 80.7 kg 80.5 kg Intake: IV 175 Magnesium Sulfate-D5w Pmx 100 1 gm In Dextrose/Water 1 100ml.bag @ 100 mls/hr IVPB Q1H [facility] Rx#: [id number] Sodium Chloride 0.9% 1, 75 000 ml @ 150 mls/hr IV . Q6H40M [facility] Rx#:[id number] Intake, IV Titration 550 Amount Magnesium Sulfate-D5w Pmx 100 1 gm In Dextrose/Water 1 100ml.bag @ 100 mls/hr IVPB Q1H [facility] Rx#: [id number] Sodium Chloride 0.9% 1, 450 000 ml @ 75 mls/hr IV . [id number] [facility] Rx#:[id number] Oral 820 Output: Drainage 120 Medial Chest 120 Urine 1310 0 Other 60 Other: Voiding Method Urinal Toilet Urinal # Voids 0 # Bowel Movements 0 - Labs CBC & Chem 7: 09/01/16 04:55 09/01/16 04:51 Labs: Abnormal Lab Results - Last 24 Hours (Table) 09/01/16 09/01/16 Range/Units 04:51 04:55 RBC 3.79 L (4.30-5.90) m/uL Hgb 12.1 L (13.0-17.5) gm/dL Hct 34.6 L (39.0-53.0) % Plt Count 147 L (150-450) k/uL Calcium 8.3 L (8.4-10.2) mg/dL Phosphorus 1.6 L (2.5-4.5) mg/dL Total Protein 5.2 L (6.3-8.2) g/dL Albumin 2.9 L (3.5-5.0) g/dL
--- NOTE | 2016-09-01 09:19 | P.PN ---
<Jamaica Arana - Last Filed: 09/01/16 09:15> Subjective Principal diagnosis: Pericardial effusion POD #3 placement of pigtail catheter to drain effusion. Patient currently sitting up in chair in no acute distress. States pain is well -controlled. Drainage minimal from pigtail catheter in the last 24 hours. Objective - Vital Signs Vital signs: Vital Signs Temp 98.3 F 09/01/16 08:00 Pulse 91 09/01/16 08:00 Resp 19 09/01/16 08:00 BP 129/82 09/01/16 08:00 Pulse Ox 96 09/01/16 06:00 Intake & Output 08/31/16 09/01/16 09/01/16 18:59 06:59 18:59 Intake Total 725 820 100 Output Total 1490 0 0 Balance -765 820 100 Weight 80.7 kg 80.5 kg Intake: IV 175 100 Magnesium Sulfate-D5w Pmx 100 100 1 gm In Dextrose/Water 1 100ml.bag @ 100 mls/hr IVPB Q1H [facility] Rx#: [id number] Sodium Chloride 0.9% 1, 75 000 ml @ 150 mls/hr IV . Q6H40M [facility] Rx#:[id number] Intake, IV Titration 550 Amount Magnesium Sulfate-D5w Pmx 100 1 gm In Dextrose/Water 1 100ml.bag @ 100 mls/hr IVPB Q1H [facility] Rx#: [id number] Sodium Chloride 0.9% 1, 450 000 ml @ 75 mls/hr IV . [id number] [facility] Rx#:[id number] Oral 820 Output: Drainage 120 Medial Chest 120 Urine 1310 0 0 Other 60 Other: Voiding Method Urinal Toilet Urinal # Voids 0 # Bowel Movements 0 - Constitutional General appearance: Present: cooperative, no acute distress - Respiratory Details: Lungs sounds clear bilaterally. Respirations even, nonlabored. Currently on room air with oxygen saturation 96%. - Cardiovascular Details: S1, S2 present. Regular rate and rhythm, normal sinus rhythm on telemetry. Mediastinal drainage tube to dependent gravity. 15 mL drainage overnight. - Gastrointestinal Gastrointestinal Comment(s): Abdomen soft, nontender, nondistended. Active bowel sounds 4 quadrants. Tolerating diet. - Genitourinary Genitourinary Comment(s): Lamb discontinued yesterday. Voiding clear, yellow urine. - Musculoskeletal Musculoskeletal: Present: gait normal, strength equal bilaterally - Psychiatric Psychiatric: Present: A&O x's 3, appropriate affect, intact judgment & insight - Allied health notes Allied health notes reviewed: nursing - Labs CBC & Chem 7: 09/01/16 04:55 09/01/16 04:51 Labs: Abnormal Lab Results - Last 24 Hours (Table) 09/01/16 09/01/16 Range/Units 04:51 04:55 RBC 3.79 L (4.30-5.90) m/uL Hgb 12.1 L (13.0-17.5) gm/dL Hct 34.6 L (39.0-53.0) % Plt Count 147 L (150-450) k/uL Calcium 8.3 L (8.4-10.2) mg/dL Phosphorus 1.6 L (2.5-4.5) mg/dL Total Protein 5.2 L (6.3-8.2) g/dL Albumin 2.9 L (3.5-5.0) g/dL Assessment and Plan (1) History of supraventricular tachycardia Status: Acute (2) History of prior ablation treatment Status: Acute (3) Pericardial effusion Status: Acute (4) Hypertension Status: Acute Plan: 1. Mediastinal pigtailed discontinued this morning by Dr. Cobian 2. Medical management per primary service. 3. Increase activity, ambulate in hallway. 4. Will transfer to [address] [place] [address] today. 5. Will continue to monitor. Anticipate discharge in 24-48 hours. Time with Patient: Greater than 30 <Ethan Vaughn - Last Filed: 09/01/16 11:19> Objective - Vital Signs Vital signs: Vital Signs Temp 98.3 F 09/01/16 08:00 Pulse 86 09/01/16 09:00 Resp 14 09/01/16 09:00 BP 139/89 09/01/16 09:00 Pulse Ox 96 09/01/16 06:00 Intake & Output 08/31/16 09/01/16 09/01/16 18:59 06:59 18:59 Intake Total 725 820 100 Output Total 1490 0 0 Balance -765 820 100 Weight 80.7 kg 80.5 kg 80.5 kg Intake: IV 175 100 Magnesium Sulfate-D5w Pmx 100 100 1 gm In Dextrose/Water 1 100ml.bag @ 100 mls/hr IVPB Q1H [facility] Rx#: [id number] Sodium Chloride 0.9% 1, 75 000 ml @ 150 mls/hr IV . Q6H40M [facility] Rx#:[id number] Intake, IV Titration 550 Amount Magnesium Sulfate-D5w Pmx 100 1 gm In Dextrose/Water 1 100ml.bag @ 100 mls/hr IVPB Q1H [facility] Rx#: [id number] Sodium Chloride 0.9% 1, 450 000 ml @ 75 mls/hr IV . [id number] [facility] Rx#:[id number] Oral 820 Output: Drainage 120 Medial Chest 120 Urine 1310 0 0 Other 60 Other: Voiding Method Urinal Toilet Toilet Urinal Urinal # Voids 0 1 # Bowel Movements 0 - Labs CBC & Chem 7: 09/01/16 04:55 09/01/16 04:51 Labs: Abnormal Lab Results - Last 24 Hours (Table) 09/01/16 09/01/16 Range/Units 04:51 04:55 RBC 3.79 L (4.30-5.90) m/uL Hgb 12.1 L (13.0-17.5) gm/dL Hct 34.6 L (39.0-53.0) % Plt Count 147 L (150-450) k/uL Calcium 8.3 L (8.4-10.2) mg/dL Phosphorus 1.6 L (2.5-4.5) mg/dL Total Protein 5.2 L (6.3-8.2) g/dL Albumin 2.9 L (3.5-5.0) g/dL Assessment and Plan Plan: The patient was seen and examined. I agree with the above assessment and plan. His echocardiogram performed yesterday revealed only a trivial pericardial effusion. His pericardial drain was removed. He remains hemodynamically stable. He will be transferred to [facility] care today.
[2016-09-01] MEDS: CLINDAMYCIN 150 MG CAP PO SCH ×3 (10:07→22:21)
[2016-09-01] MEDS: SODIUM PHOSPHATE 10 MMOL in SODIUM CHLORIDE 0.9% 250 ML IVPB SCH ×2 (11:28→12:38)
[2016-09-02] MEDS: TEMAZEPAM 30 MG CAP PO SCH (04:45)
[2016-09-02] MEDS: FAMOTIDINE 20 MG TAB PO SCH (08:13)
[2016-09-02] MEDS: COLCHICINE 0.6 MG TAB PO SCH (08:13)
[2016-09-02] MEDS: CLINDAMYCIN 150 MG CAP PO SCH (08:13)
[2016-09-02] MEDS: VERAPAMIL 40 MG TAB PO SCH (08:20)
--- NOTE | 2016-09-02 10:14 | ECHOF ---
Referral Reason:pericardial space MEASUREMENTS -------- HEIGHT: 177.8 cm WEIGHT: 80.3 kg BP: 128/81 FINDINGS -------- Sinus rhythm. This was a technically good study. Limited Study Overall left ventricular systolic function is normal with, an EF between 55 - 60 %. There is no pericardial effusion. CONCLUSIONS -------- 1. Sinus rhythm. 2. This was a technically good study. 3. Limited Study 4. Overall left ventricular systolic function is normal with, an EF between 55 - 60 %. 5. There is no pericardial effusion. GRADING CLERK: Mamie Vargas, DELROYCS
[2016-09-02 10:28] VITALS: RESP 16; TEMP 98.1
[2016-09-02 12:02] VITALS: BP 121/77; PULSE 87
--- NOTE | 2016-09-02 12:25 | P.PN ---
Subjective Principal diagnosis: Pericardial effusion POD #4 placement of pigtail catheter to drain effusion. Removed yesterday. Patient currently sitting up in chair in no acute distress. States pain is well -controlled. Mediastinal pigtail drain was discontinued yesterday. Repeat echocardiogram done this morning demonstrates no pericardial effusion. Patient is anticipating discharge to home this morning Objective - Vital Signs Vital signs: Vital Signs Temp 98.1 F 09/02/16 11:21 Pulse 87 09/02/16 12:01 Resp 16 09/02/16 12:01 BP 121/77 09/02/16 12:01 Pulse Ox 95 09/02/16 12:01 Intake & Output 09/01/16 09/02/16 09/02/16 18:59 06:59 18:59 Intake Total 330 Output Total 0 Balance 330 Weight 80.5 kg 76 kg Intake: IV 100 Magnesium Sulfate-D5w Pmx 100 1 gm In Dextrose/Water 1 100ml.bag @ 100 mls/hr IVPB Q1H [facility] Rx#: [id number] Oral 230 Output: Urine 0 Other: Voiding Method Toilet Toilet Toilet Urinal # Voids 1 2 - Constitutional General appearance: Present: cooperative, no acute distress - Respiratory Details: Lungs sounds clear to auscultation. Respirations even, nonlabored. Currently on room air with oxygen saturation 95%. - Cardiovascular Details: S1, S2 present. Regular rate and rhythm, normal sinus rhythm on telemetry. - Gastrointestinal Gastrointestinal Comment(s): Abdomen soft, nontender, nondistended. Active bowel sounds 4 quadrants. - Genitourinary Genitourinary Comment(s): Continues to void clear, yellow urine. - Integumentary Integumentary Comment(s): Anterior chest incision well approximated. - Musculoskeletal Musculoskeletal: Present: gait normal, strength equal bilaterally - Psychiatric Psychiatric: Present: A&O x's 3, appropriate affect, intact judgment & insight - Allied health notes Allied health notes reviewed: nursing - Labs CBC & Chem 7: 09/01/16 04:55 09/01/16 04:51 - Imaging and Cardiology Echocardiogram results from this morning reviewed. Assessment and Plan (1) History of supraventricular tachycardia Status: Acute (2) History of prior ablation treatment Status: Acute (3) Pericardial effusion Status: Acute (4) Hypertension Status: Acute Plan: 1. Mediastinal pigtailed discontinued yesterday 2. Medical management per primary service. 3. Increase activity, ambulate in hallway. 4. Anticipate discharge to home today. We will sign off. Time with Patient: Less than 30
--- NOTE | 2016-09-02 13:21 | P.DS ---
Providers Date of admission: 08/29/16 17:16 Attending physician: Joao Cobian Patient is doing well from a cardiac standpoint. He denies any chest discomfort except when he takes a deep breath when he feels a little bit of vague discomfort. No dizziness lightheadedness no loss of consciousness. No palpitations. He has not had any arrhythmias over the last 48-72 hours. No abdominal symptoms no heartburn On examination he is been afebrile 98.1F, pulse rate in the 80s, respirations normal blood pressure ranges from 121/77 mmHg to 134/84 mmHg heart sounds are normal I don't hear a rub head and neck examination normal no JVD no thyromegaly Breath sounds are normal no rhonchi no crackles Abdomen soft nontender extremities are warm no edema Impression orthodromic reentry, deep myocardial focus or/accessory pathway Detailed mapping several years back suggested a deep focus. 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 He had a pericardial effusion post procedure that was successfully drained percutaneously. The tube was removed yesterday and his follow-up 2-D echo does not show any effusion LV function is normal is doing well and will be discharged home I will see him again this Friday At this time he is being discharged home on colchicine 0.6 g twice daily as well as verapamil 120 mg by mouth daily long-acting no other medications Consults: 08/29/16 18:01 Consult Physician Routine Consulting Provider: Ethan Vaughn Consult Reason/Comments: pericardial eff Do you want consulting provider notified?: Already Contacted Primary care physician: Travon Taylor Plan - Discharge Summary New Discharge Prescriptions: New Colchicine [Colcrys] 0.6 mg PO BID #6 tablet Verapamil HCl [Verapamil ER] 120 mg PO DAILY #1 tablet.er Discontinued Fish Oil/Dha/Epa [Fish Oil 1,200 mg Fish Oil] 1 cap PO BID Aspirin 325 mg PO DAILY Flecainide Acetate [Tambocor] 100 mg PO Q12HR Diltiazem HCl [Cardizem Cd] 120 mg PO DAILY No Action Cyanocobalamin [Vitamin B-12] 500 mcg PO DAILY Ubidecarenone [Co Q-10] 200 mg PO DAILY Multivitamins, Thera [Multivitamin (formulary)] 1 tab PO DAILY Discharge Medication List Cyanocobalamin [Vitamin B-12] 500 mcg PO DAILY 08/23/16 [History] Multivitamins, Thera [Multivitamin (formulary)] 1 tab PO DAILY 08/23/16 [History ] Ubidecarenone [Co Q-10] 200 mg PO DAILY 08/23/16 [History] Colchicine [Colcrys] 0.6 mg PO BID #6 tablet 09/02/16 [Rx] Verapamil HCl [Verapamil ER] 120 mg PO DAILY #1 tablet.er 09/02/16 [Rx] Follow up Appointment(s)/Referral(s): Joao Cobian MD [STAFF PHYSICIAN] - 1 Week
--- NOTE | 2016-09-04 08:17 | ECHOF ---
Referral Reason:post pericardial window change in status MEASUREMENTS -------- HEIGHT: 177.8 cm WEIGHT: 74.8 kg BP: 124/83 RVIDd: 2.7 cm (< 3.3) IVSd: 1.3 cm (0.6 - 1.1) LVIDd: 3.7 cm (3.9 - 5.3) LVPWd: 1.2 cm (0.6 - 1.1) IVSs: 1.7 cm LVIDs: 2.4 cm LVPWs: 1.4 cm LA Diam: 2.3 cm (2.7 - 3.8) Ao Diam: 4.0 cm (2.0 - 3.7) AV Cusp: 2.5 cm (1.5 - 2.6) MV EXCURSION: 21.714 mm (> 18.000) MV EF SLOPE: 39 mm/s (70 - 150) EPSS: 0.8 cm MV E Brooks: 0.86 m/s MV DecT: 173 ms MV A Brooks: 0.70 m/s MV E/A Ratio: 1.23 RAP: 5.00 mmHg RVSP: 30.68 mmHg FINDINGS -------- Sinus rhythm. This was a technically adequate study. The left ventricular size is normal. There is mild concentric left ventricular hypertrophy. Overall left ventricular systolic function is normal with, an EF between 60 - 65 %. The right ventricle is normal in size. The left atrium is normal in size. The right atrium is normal in size. The aortic valve is trileaflet and appears structurally normal. Mild mitral annular calcification present. Mild tricuspid regurgitation present. Right ventricular systolic pressure is normal at < 35 mmHg. The pulmonic valve is normal. The aortic root is dilated measuring 4.0cm. There is a small, generalized pericardial effusion present. CONCLUSIONS -------- 1. Sinus rhythm. 2. Mild mitral annular calcification present. 3. Mild tricuspid regurgitation present. 4. Right ventricular systolic pressure is normal at < 35 mmHg. 5. The pulmonic valve is normal. 6. The aortic root is dilated measuring 4.0cm. 7. There is a small, generalized pericardial effusion present. 8. This was a technically adequate study. 9. The left ventricular size is normal. 10. There is mild concentric left ventricular hypertrophy. 11. Overall left ventricular systolic function is normal with, an EF between 60 - 65 %. 12. The right ventricle is normal in size. 13. The left atrium is normal in size. 14. The right atrium is normal in size. 15. The aortic valve is trileaflet and appears structurally normal. ENVIRONMENTAL ATTORNEY: Mamie Vargas RDCS
== END 2016-09-02 15:48 | disposition home or self-care (01) | DRG 274 ==
LOC: CATHEP 09:54 → 6ICU 17:16 → 6SEL 09-01 11:44
PROVIDERS: ADMIT Internal Medicine Clinical Cardiac Electrophysiology; ATTEND Internal Medicine Clinical Cardiac Electrophysiology
PROC: 02K83ZZ Map Conduction Mechanism, Percutaneous Approach (ICD-10-PCS; principal; 2016-08-29 12:33)
PROC: 4A023FZ Measurement of Cardiac Rhythm, Percutaneous Approach (ICD-10-PCS; principal; 2016-08-29 12:33)
PROC: 02573ZK Destruction of Left Atrial Appendage, Percutaneous Approach (ICD-10-PCS; principal; 2016-08-29 12:33)
PROC: 02583ZZ Destruction of Conduction Mechanism, Percutaneous Approach (ICD-10-PCS; principal; 2016-08-29 12:33)
PROC: 0W9D30Z Drainage of Pericardial Cavity with Drainage Device, Percutaneous Approach (ICD-10-PCS; principal; 2016-08-29 12:33)
PROC: 4A0234Z Measurement of Cardiac Electrical Activity, Percutaneous Approach (ICD-10-PCS; principal; 2016-08-29 12:33)
DX: I47.1 Supraventricular tachycardia (principal); I31.4 Cardiac tamponade; I10 Essential (primary) hypertension; E78.5 Hyperlipidemia, unspecified; I44.1 Atrioventricular block, second degree; I45.10 Unspecified right bundle-branch block; Z79.82 Long term (current) use of aspirin; Z85.828 Personal history of other malignant neoplasm of skin; Z79.899 Other long term (current) drug therapy; Z88.0 Allergy status to penicillin
CPT/HCPCS: 33010; 80053; 83735; 84100; 85025; 85347; 85610; 86850; 86900; 86901; 86920; 93306; 93308; 93462; 93613; 93653; 93662

== ENCOUNTER 2016-09-19 14:17 | Observation (INO) | payer BC ==
--- NOTE | 2016-09-19 14:42 | ED ---
General Adult HPI - General Chief complaint: Chest Pain Stated complaint: Cardiac Issues Time Seen by Provider: 09/19/16 14:21 Source: EMS, RN notes reviewed, old records reviewed Mode of arrival: EMS Limitations: no limitations - History of Present Illness Initial comments: This is a 48-year-old male to the ER for evaluation. This patient presents for evaluation regarding chest pain. Continued chest pain. History of a DVT history of ablation. No shortness of breath not passing out patient states she' s been dealing with significant pain since his ablation and procedure complication. Patient denies fevers. No cough or congestion, no travel history - Related Data Home Medications Medication Instructions Recorded Confirmed Cyanocobalamin [Vitamin B-12] 500 mcg PO DAILY 08/23/16 09/19/16 Multivitamins, Thera [Multivitamin 1 tab PO DAILY 08/23/16 09/19/16 (formulary)] Ubidecarenone [Co Q-10] 200 mg PO DAILY 08/23/16 09/19/16 Aspirin 325 mg PO DAILY 09/19/16 09/19/16 [place]-3 Fatty Acids/Fish Oil [Fish 1 cap PO DAILY 09/19/16 09/19/16 Oil 1,000 mg Softgel] Previous Rx's Medication Instructions Recorded Verapamil HCl [Verapamil ER] 120 mg PO DAILY #1 tablet.er 09/02/16 Allergies Allergy/AdvReac Type Severity Reaction Status Date / Time Penicillins Allergy Rash/Hives Verified 09/19/16 14:50 Review of Systems ROS Statement: Those systems with pertinent positive or pertinent negative responses have been documented in the HPI. ROS Other: All systems not noted in ROS Statement are negative. Past Medical History Past Medical History: Asthma, Cancer, Hyperlipidemia, Hypertension, Supraventricular Tachycardia (SVT) Additional Past Medical History / Comment(s): varicose veins, see Dr Cobian H& P. skin cancer History of Any Multi-Drug Resistant Organisms: None Reported Past Surgical History: Cardiac Ablation, Orthopedic Surgery Additional Past Surgical History / Comment(s): moles removed, arthroscopy left knee Past Anesthesia/Blood Transfusion Reactions: Motion Sickness Past Psychological History: No Psychological Hx Reported Smoking Status: Never smoker Past Alcohol Use History: None Reported Past Drug Use History: None Reported - Past Family History Mother Family Medical History: Cancer Sister(s) Family Medical History: Cancer Father Family Medical History: Cancer, Deep Vein Thrombosis (DVT) General Exam Limitations: no limitations General appearance: alert, in no apparent distress Head exam: Present: atraumatic, normocephalic, normal inspection Eye exam: Present: normal appearance, PERRL, EOMI. Absent: scleral icterus, conjunctival injection, periorbital swelling ENT exam: Present: normal exam, mucous membranes moist Neck exam: Present: normal inspection. Absent: tenderness, meningismus, lymphadenopathy Respiratory exam: Present: normal lung sounds bilaterally. Absent: respiratory distress, wheezes, rales, rhonchi, stridor Cardiovascular Exam: Present: regular rate, normal rhythm, normal heart sounds. Absent: systolic murmur, diastolic murmur, rubs, gallop, clicks GI/Abdominal exam: Present: soft, normal bowel sounds. Absent: distended, tenderness, guarding, rebound, rigid Extremities exam: Present: normal inspection, full ROM, normal capillary refill. Absent: tenderness, pedal edema, joint swelling, calf tenderness Back exam: Present: normal inspection Neurological exam: Present: alert, oriented X3, CN II-XII intact Psychiatric exam: Present: normal affect, normal mood Skin exam: Present: warm, dry, intact, normal color. Absent: rash Course Vital Signs 09/19/16 09/19/16 09/19/16 14:23 14:31 14:55 Temperature 97.3 F L 97.3 F L Pulse Rate 85 85 83 Respiratory 16 16 16 Rate Blood Pressure 143/93 140/92 140/95 O2 Sat by Pulse 95 95 95 Oximetry - Reevaluation(s) Reevaluation #1: 09/19/16 15:05 History reviewed from prior ER stay EKG Findings - EKG Comments: EKG Findings:: EKG shows Medical Decision Making - Medical Decision Making 56 male to ER for evaluation regarding chest pain, recent heart history includes SVT, ablation and complication, patient will be admitted for cardiac observation - Radiology Data Radiology results: report reviewed (CXR is negative for acute disease), image reviewed Critical Care Time Critical Care Time: Yes Total Critical Care Time: 31 Disposition Clinical Impression: History of supraventricular tachycardia, History of prior ablation treatment, Chest pain, Hypertension, Pericardial effusion Disposition: ADMITTED IP TO THIS HOSP Condition: Fair Instructions: Chest Pain (ED) Referrals: Travon Taylor MD [Primary Care Provider] - 1-2 days
[2016-09-19] MEDS ORDERED: ASPIRIN 81 MG CHEW PO STA (15:00)
[2016-09-19] MEDS ORDERED: NITROGLYCERIN SL TABS 0.4 MG TAB SUBLINGUAL PRN (15:00)
[2016-09-19] MEDS ORDERED: ACETAMINOPHEN TAB 325 MG TAB PO PRN (18:48)
[2016-09-19] MEDS ORDERED: ZOLPIDEM 5 MG TAB PO PRN (18:48)
[2016-09-19 19:23] LABS: Creatine Kinase 49 U/L (55-170)
[2016-09-19] MEDS ORDERED: ALPRAZolam 0.25 MG TAB PO PRN (19:24)
[2016-09-19] MEDS ORDERED: HYDROmorphone 1 MG/ML 1 ML SYRINGE IVP PRN (19:24)
[2016-09-19] MEDS ORDERED: HYDROcodone/APAP 5-325MG 1 EACH TAB PO PRN (19:24)
[2016-09-19] MEDS ORDERED: TEMAZEPAM 15 MG CAP PO PRN (19:24)
[2016-09-19 19:36] LABS: Creatine Kinase MB 0.4 ng/mL (0.0-2.4); Troponin I <0.012 ng/mL (0.000-0.034)
--- NOTE | 2016-09-19 19:58 | XR ---
EXAMINATION TYPE: XR chest 1V portable DATE OF EXAM: 09/19/2016 COMPARISON: NONE HISTORY: Chest pain, congestive heart failure TECHNIQUE: Single frontal view of the chest is obtained. FINDINGS: There is no focal air space opacity, pleural effusion, or pneumothorax seen. The cardiac silhouette size is within normal limits. There are overlying cardiac leads. The osseous structures a re intact. IMPRESSION: No acute process.
[2016-09-19 20:03] VITALS: RESP 16
[2016-09-19 20:06] LABS: Basophils # (A) 0.1 k/uL (0-0.2); Basophils % (A) 1 %; CH 31.4; CHCM 34.1; Eosinophils # (A) 0.2 k/uL (0-0.7); Eosinophils % (A) 3 %; HCT 43.7 % (39.0-53.0); HDW 2.94; HGB 14.5 gm/dL (13.0-17.5); Luc # (Auto) 0.21; Luc % (Auto) 3; Lymphocytes # (A) 1.2 k/uL (1.0-4.8); Lymphocytes % (A) 18 %; MCH 30.6 pg (25.0-35.0); MCHC 33.1 g/dL (31.0-37.0); MCV 92.4 fL (80.0-100.0); Mean Platelet Volume 6.9; Monocytes # (A) 0.4 k/uL (0-1.0); Monocytes % (A) 6 %; Neutrophils # (A) 4.6 k/uL (1.3-7.7); Neutrophils % (A) 69 %; RBC 4.73 m/uL (4.30-5.90); RDW 13.1 % (11.5-15.5); WBC 6.6 k/uL (3.8-10.6)
[2016-09-19 20:07] LABS: ALT 35 U/L (21-72); AST 21 U/L (17-59); Alkaline Phosphatase 84 U/L (38-126); Anion Gap 10 mmol/L; Blood Urea Nitrogen 14 mg/dL (9-20); Calcium 9.6 mg/dL (8.4-10.2); Carbon Dioxide 29 mmol/L (22-30); Chloride 100 mmol/L (98-107); Glucose 120 mg/dL (74-99); Non-African American GFR(MDRD) >60 (>60 ml/min/1.73 sqM); Potassium 4.5 mmol/L (3.5-5.1); Sodium 139 mmol/L (137-145); Total Protein 6.9 g/dL (6.3-8.2)
[2016-09-19 21:04] LABS: Erythrocyte Sedimentation Rate 13 mm/hr (0-15)
[2016-09-19] MEDS ORDERED: VERAPAMIL SR 120 MG TABLET.ER PO STA (21:32)
[2016-09-19] MEDS: MORPHINE SULFATE 2 MG/ML SYRINGE IVP PRN (21:36)
[2016-09-20 01:18] LABS: Creatine Kinase 43 U/L (55-170)
[2016-09-20 01:28] LABS: Creatine Kinase MB 0.4 ng/mL (0.0-2.4)
[2016-09-20 01:29] LABS: Troponin I <0.012 ng/mL (0.000-0.034)
[2016-09-20] MEDS: MORPHINE SULFATE 2 MG/ML SYRINGE IVP PRN ×2 (03:12→07:33)
[2016-09-20 07:42] LABS: Basophils # (A) 0.1 k/uL (0-0.2); Basophils % (A) 1 %; CH 31.4; Eosinophils # (A) 0.2 k/uL (0-0.7); Eosinophils % (A) 2 %; HCT 43.3 % (39.0-53.0); HDW 2.91; HGB 14.2 gm/dL (13.0-17.5); Luc % (Auto) 3; Lymphocytes % (A) 14 %; MCH 30.4 pg (25.0-35.0); MCHC 32.8 g/dL (31.0-37.0); MCV 92.6 fL (80.0-100.0); Mean Platelet Volume 7.1; Monocytes # (A) 0.5 k/uL (0-1.0); Monocytes % (A) 6 %; Neutrophils # (A) 5.6 k/uL (1.3-7.7); Neutrophils % (A) 74 %; RBC 4.67 m/uL (4.30-5.90); RDW 13.4 % (11.5-15.5); WBC 7.5 k/uL (3.8-10.6); WBC (Perox) 7.27
[2016-09-20 07:53] LABS: Anion Gap 9 mmol/L; Blood Urea Nitrogen 12 mg/dL (9-20); Calcium 9.2 mg/dL (8.4-10.2); Carbon Dioxide 26 mmol/L (22-30); Chloride 102 mmol/L (98-107); Cholesterol 161 mg/dL (<200); Glucose 85 mg/dL (74-99); HDL Cholesterol 41 mg/dL (40-60); Non-African American GFR(MDRD) >60 (>60 ml/min/1.73 sqM); Potassium 4.7 mmol/L (3.5-5.1); Sodium 137 mmol/L (137-145)
[2016-09-20 08:03] LABS: Creatine Kinase 38 U/L (55-170)
[2016-09-20 08:15] LABS: Creatine Kinase MB 0.3 ng/mL (0.0-2.4); Troponin I <0.012 ng/mL (0.000-0.034)
[2016-09-20] MEDS ORDERED: IBUPROFEN 800 MG TAB PO PRN (08:42)
--- NOTE | 2016-09-20 08:52 | P.CRDCN ---
History of Present Illness Consult date: 09/20/16 History of present illness: This is a 56-year-old gentleman who had ablation for supraventricular tachycardia early this month about 10-15 days ago. The procedure was complicated by pericardial effusion which was subsequently drained. Patient had a pigtail catheter put in by cardiac surgeons. Patient was sent home in a stable condition. Patient now comes with complaints of increasing chest pain which is throbbing in nature and also some soreness. Apparently the pain increases on deep breathing. He went to [facility] and had an echocardiogram done. Apparently there was small amount of pericardial effusion. Patient had a repeat study today. His CRP is about 20. I'm going to start him on Motrin 800 mg by mouth 3 times a day. His EKG did not reveal any acute changes. There are no signs of any JVD or peripheral edema. Some of this pain could be related to scar tissue. I'm also going to ask [facility] surgeons to evaluate the patient Review of Systems As per the chart Past Medical History Past Medical History: Asthma, Cancer, Hyperlipidemia, Hypertension, Supraventricular Tachycardia (SVT) Additional Past Medical History / Comment(s): varicose veins, see Dr Cobian H& P. skin cancer-melanoma removed rt upper shoulder,hx svt PERICARDIAL EFFUSION POST EP STUDY/ABLATION History of Any Multi-Drug Resistant Organisms: None Reported Past Surgical History: Cardiac Ablation, Orthopedic Surgery Additional Past Surgical History / Comment(s): moles removed-melanoma, arthroscopy left knee, laser sx for varicose veins. Past Anesthesia/Blood Transfusion Reactions: Motion Sickness Smoking Status: Never smoker - Past Family History Mother Family Medical History: Cancer Sister(s) Family Medical History: Cancer Father Family Medical History: Cancer, Deep Vein Thrombosis (DVT) Medications and Allergies Home Medications Medication Instructions Recorded Confirmed Type Cyanocobalamin [Vitamin B-12] 500 mcg PO DAILY 08/23/16 09/19/16 History Multivitamins, Thera [Multivitamin 1 tab PO DAILY 08/23/16 09/19/16 History (formulary)] Ubidecarenone [Co Q-10] 200 mg PO DAILY 08/23/16 09/19/16 History Aspirin 325 mg PO DAILY 09/19/16 09/19/16 History [place]-3 Fatty Acids/Fish Oil [Fish 1 cap PO DAILY 09/19/16 09/19/16 History Oil 1,000 mg Softgel] Allergies Allergy/AdvReac Type Severity Reaction Status Date / Time Penicillins Allergy Rash/Hives Verified 09/19/16 21:27 Physical Exam Vitals: Vital Signs Temp Pulse Pulse Resp BP BP Pulse Ox 09/20/16 08:00 98 F 66 16 139/80 95 09/20/16 04:00 16 09/20/16 03:28 98.1 F 92 16 135/86 95 09/20/16 00:00 16 09/19/16 23:50 98.2 F 83 16 138/88 97 09/19/16 20:00 98.1 F 98 16 119/80 96 09/19/16 18:53 18 09/19/16 17:30 97.7 F 74 18 136/91 98 09/19/16 16:54 98.0 F 80 16 147/85 96 09/19/16 14:55 83 16 140/95 95 09/19/16 14:31 97.3 F L 85 16 140/92 95 09/19/16 14:23 97.3 F L 85 16 143/93 95 Intake and Output 09/19/16 09/20/16 09/20/16 22:59 06:59 14:59 Other: # Voids 1 Weight 72.6 kg GENERAL EXAM: Patient is alert and oriented and doesn't appear to be in any acute distress HEENT: Normocephalic. Normal reaction of pupils, equal size, normal range of extraocular motion. No erythema or exudates in the throat. NECK: No masses, no nuchal rigidity. CHEST: No chest wall deformity. LUNGS: Equal air entry with no crackles or wheeze. HEART: S1 and S2 normal with no audible mumurs or gallops. Regular rhythm, femorals equal on both sides.. ABDOMEN: No hepatosplenomegaly, normal bowel sounds, no guarding or rigidity. SKIN: No rashes CENTRAL NERVOUS SYSTEM: No focal deficits. EXTREMITIES: No cyanosis, clubbing or edema. Results 09/20/16 06:47 09/20/16 06:47 Cardiac Enzymes 09/19/16 09/19/16 09/20/16 Range/Units 18:41 19:37 00:26 AST 21 (17-59) U/L CK-MB (CK-2) 0.4 0.4 (0.0-2.4) ng/mL Troponin I <0.012 <0.012 (0.000-0.034) ng/mL 09/20/16 Range/Units 06:47 AST (17-59) U/L CK-MB (CK-2) 0.3 (0.0-2.4) ng/mL Troponin I <0.012 (0.000-0.034) ng/mL Lipids 09/20/16 Range/Units 06:47 Triglycerides 77 (<150) mg/dL Cholesterol 161 (<200) mg/dL HDL Cholesterol 41 (40-60) mg/dL CBC 09/19/16 09/20/16 Range/Units 19:37 06:47 WBC 6.6 7.5 (3.8-10.6) k/uL RBC 4.73 4.67 (4.30-5.90) m/uL Hgb 14.5 14.2 (13.0-17.5) gm/dL Hct 43.7 43.3 (39.0-53.0) % Plt Count 290 303 (150-450) k/uL Comprehensive Metabolic Panel 09/19/16 09/20/16 Range/Units 19:37 06:47 Sodium 139 137 (137-145) mmol/L Potassium 4.5 4.7 (3.5-5.1) mmol/L Chloride 100 102 (98-107) mmol/L Carbon Dioxide 29 26 (22-30) mmol/L BUN 14 12 (9-20) mg/dL Creatinine 0.70 0.74 (0.66-1.25) mg/dL Glucose 120 H 85 (74-99) mg/dL Calcium 9.6 9.2 (8.4-10.2) mg/dL AST 21 (17-59) U/L ALT 35 (21-72) U/L Alkaline Phosphatase 84 (38-126) U/L Total Protein 6.9 (6.3-8.2) g/dL Albumin 4.3 (3.5-5.0) g/dL Current Medications Generic Name Dose Route Start Last Admin Trade Name Freq PRN Reason Stop Dose Admin Acetaminophen 650 mg 09/19/16 18:48 Tylenol Tab PO Q4HR PRN Pain Alprazolam 0.25 mg 09/19/16 19:24 Xanax PO TID PRN Anxiety Atorvastatin Calcium 80 mg 09/20/16 09:00 Lipitor PO DAILY YAYO Cyanocobalamin 500 mcg 09/20/16 09:00 Vitamin B-12 PO DAILY YAYO Hydromorphone HCl 0.5 mg 09/19/16 19:24 Dilaudid IVP Q6HR PRN Severe Pain Ibuprofen 800 mg 09/20/16 08:42 Motrin PO TID PRN Pain Morphine Sulfate 2 mg 09/19/16 18:48 09/20/16 07:33 Morphine Sulfate (Inj) IVP 2 mg Q5M PRN Administration Chest Pain Multivitamins 1 each 09/20/16 12:00 Theragran PO DAILY@1200 YAYO Nitroglycerin 0.4 mg 09/19/16 15:00 Nitrostat SUBLINGUAL Q5M PRN Chest Pain Temazepam 15 mg 09/19/16 19:24 Restoril PO HS PRN Insomnia Verapamil HCl 120 mg 09/20/16 09:00 Isoptin Sr PO DAILY [facility] Zolpidem Tartrate 5 mg 09/19/16 18:48 Ambien PO HS PRN Insomnia Intake and Output 09/19/16 09/20/16 09/20/16 22:59 06:59 14:59 Other: # Voids 1 Weight 72.6 kg 09/20/16 06:47 09/20/16 06:47 EKG Interpretations (text) Sinus rhythm Assessment and Plan (1) Chest pain Status: Acute (2) History of prior ablation treatment Status: Acute (3) History of supraventricular tachycardia Status: Acute (4) Hypertension Status: Acute (5) Pericardial effusion Status: Acute Plan: A chest pains appear to be atypical for angina. Seems to be pleuritic and possibly some muscular skeletal pain. It could be secondary to persistent pericarditis. I'm going to start him on Motrin 800 mg by mouth 3 times a day. I'm going to have a cardiac surgeon to evaluate the patient. Further recommendations depend upon the clinical course.
[2016-09-20] MEDS ORDERED: CYANOCOBALAMIN 500 MCG TAB PO SCH (09:00)
[2016-09-20] MEDS ORDERED: VERAPAMIL SR 120 MG TABLET.ER PO SCH (09:00)
[2016-09-20] MEDS ORDERED: ATORVASTATIN 80 MG TAB PO SCH (09:00)
[2016-09-20] MEDS ORDERED: ASPIRIN 325 MG TAB PO SCH (09:00)
--- NOTE | 2016-09-20 09:12 | HP ---
CHIEF COMPLAINT: Chest pain. HISTORY OF PRESENT ILLNESS: This 56-year-old gentleman with a past medical history of multiple medical problems including history of hypertension, hyperlipidemia, supraventricular tachycardia, recently had a cardiac ablation by Dr. Cobian. Postoperatively, the patient had pericardial effusion, which was drained. The patient improved significantly. Patient went home and currently the patient complained of on and off chest pain in the anterior part of the chest. Last night, the patient had pain and it was aggravated by lying prone and unable to go to sleep and the patient went to [facility] and subsequently transferred to [facility] for further evaluation and treatment. There is no history of fever, rigors or chills. No history of headache, loss of consciousness or seizures. The patient was felt in the anterior part and also with moderate severe intensity also increased from respiration and position also as mentioned earlier. PAST MEDICAL HISTORY: History of recent ablation for SVT, hypertension, hyperlipidemia. Medication prior to admission include: 1. Verapamil 120 mg p.o. daily. 2. Fish oil 1 p.o. daily. 3. Aspirin 325 mg daily. 4. Co-enzyme Q10, 200 mg daily. 5. Multivitamin 1 p.o. daily. 6. Vitamin B12, 500 mcg daily. Allergies are PENICILLIN. FAMILY HISTORY: History of cancer in the family. SOCIAL HISTORY: No history of smoking. No history of alcohol intake. The patient is a teacher. REVIEW OF SYSTEMS: ENT: No diminished hearing, no diminished vision. CARDIOVASCULAR SYSTEM: No angina. RESPIRATORY SYSTEM: No cough. GI: As mentioned. : No dysuria or urinary retention. NERVOUS SYSTEM: No numbness or weakness. ALLERGIES/IMMUNOLOGY: No history of asthma or hayfever. MUSCULOSKELETAL: As mentioned earlier. HEMATOLOGY/ONCOLOGY: No history of anemia. ENDOCRINE: No history of diabetes or hypothyroidism. CONSTITUTIONAL: As mentioned earlier. DERMATOLOGY: Negative. RHEUMATOLOGY: Negative. PSYCHIATRY: Negative. PHYSICAL EXAMINATION: The patient is alert and oriented x3. Pulse is 85. Blood pressure is 140/92. Respirations are 16. Temperature is 97.3. Pulse ox 95% on room air. HEENT: Conjunctivae normal. NECK: No jugular venous distention. CARDIOVASCULAR: S1 and S2 muffled. No S3, no S4. No murmur, no thrills. RESPIRATORY: Breath sounds diminished at the bases. No rhonchi, no crackles. ABDOMEN: Soft, nontender. No mass palpable. LEGS: No edema, no swelling. NERVOUS SYSTEM: Higher function as mentioned. Moves all 4 limbs. No focal motor or sensory deficits. LYMPHATICS: No lymphadenopathy of the neck, axillae or groin. SKIN: No ulcers, rashes or bleeding. Labs are EKG shows no acute abnormality. Other labs are not available yet. ASSESSMENT: 1. Chest pain, rule out unstable angina, rule out pericarditis. 2. History of recent cardiac ablation for supraventricular tachycardia and pericardial effusion. 3. Hypertension. 4. Hyperlipidemia. 5. History of asthma. 6. History of varicose veins. RECOMMENDATIONS AND DISCUSSION: This 56-year-old gentleman who presented with multiple complex medical issues, will monitor the patient closely. Continue the current medications. Continue symptomatic treatment. Otherwise, I would recommend a cardiology consultation, a 2-D echo with Doppler, basic labs. Resume home medications. Will follow the patient closely. Further recommendations to follow. MANOJD
[2016-09-20] MEDS ORDERED: MORPHINE SULFATE 2 MG/ML SYRINGE IVP PRN (10:04)
--- NOTE | 2016-09-20 10:17 | P.GSCN ---
<Jamaica Arana - Last Filed: 09/20/16 10:05> History of Present Illness Consult date: 09/20/16 Reason for Consult: Chest pain, status post recent pericardial effusion. Requesting physician: Kelly Rg History of present illness: This 48-year-old gentleman presented to the emergency room last night with complaints of chest pain to his mid sternal chest. He describes as a burning type of pain without radiation. He states he's had this since his recent admission for SVT ablation. He denies any shortness of breath, nausea, syncope or any other symptoms indicating cardiac ischemia. He was admitted in this hospital a couple of weeks ago after Dr. Cobian performed electrophysiology study for supraventricular tachycardia. During the procedure he developed a pericardial effusion which was drained by Dr. Cobian. The pericardial drain was left in place and Dr. Vaughn was consulted at that time for management of the effusion. The drain was removed 3 days after placement, and the patient had been discharged on postop day 4. Echocardiogram on the day of discharge demonstrated no pericardial effusion. As I see the patient he currently has no pain however he states that the morphine he is being given seems to help. Dr. Vaughn was consulted for recommendations and further management. Review of Systems All systems: negative - Cardiovascular Reports as per HPI Past Medical History Past Medical History: Asthma, Cancer, Hyperlipidemia, Hypertension, Supraventricular Tachycardia (SVT) Additional Past Medical History / Comment(s): varicose veins, see Dr Cobian H& P. skin cancer-melanoma removed rt upper shoulder,hx svt PERICARDIAL EFFUSION POST EP STUDY/ABLATION History of Any Multi-Drug Resistant Organisms: None Reported Past Surgical History: Cardiac Ablation, Orthopedic Surgery Additional Past Surgical History / Comment(s): moles removed-melanoma, arthroscopy left knee, laser sx for varicose veins. Past Anesthesia/Blood Transfusion Reactions: Motion Sickness Smoking Status: Never smoker - Past Family History Mother Family Medical History: Cancer Sister(s) Family Medical History: Cancer Father Family Medical History: Cancer, Deep Vein Thrombosis (DVT) Medications and Allergies Home Medications Medication Instructions Recorded Confirmed Type Cyanocobalamin [Vitamin B-12] 500 mcg PO DAILY 08/23/16 09/19/16 History Multivitamins, Thera [Multivitamin 1 tab PO DAILY 08/23/16 09/19/16 History (formulary)] Ubidecarenone [Co Q-10] 200 mg PO DAILY 08/23/16 09/19/16 History [place]-3 Fatty Acids/Fish Oil [Fish 1 cap PO DAILY 09/19/16 09/19/16 History Oil 1,000 mg Softgel] Allergies Allergy/AdvReac Type Severity Reaction Status Date / Time Penicillins Allergy Rash/Hives Verified 09/19/16 21:27 Surgical - Exam Vital Signs Temp Pulse Resp BP Pulse Ox 97.3 F L 85 16 143/93 95 09/19/16 14:23 09/19/16 14:23 09/19/16 14:23 09/19/16 14:23 09/19/16 14:23 - General well developed, well nourished, no distress, no pain - Eyes PERRL, normal ocular movement - ENT no hearing loss - Neck trachea midline - Respiratory Currently on room air with oxygen saturations 95%. normal expansion, normal respiratory effort, clear to auscultation - Cardiovascular NSR on telemetry. Rhythm: regular Heart Sounds: normal: S1, S2 - Abdomen Abdomen: soft, non tender, bowel sounds - Genitourinary deferred - Rectum deferred - Integumentary no rash, no growths, no abnormal pigmentation - Neurologic normal coordination, normal sensation - Musculoskeletal normal gait, normal posture - Psychiatric oriented to time, oriented to person, oriented to place, speech is normal, memory intact Results - Labs 09/20/16 06:47 09/20/16 06:47 Abnormal Lab Results - Last 24 Hours (Table) 09/19/16 09/19/16 09/20/16 Range/Units 18:41 19:37 00:26 Glucose 120 H (74-99) mg/dL Total Creatine Kinase 49 L 43 L (55-170) U/L C-Reactive Protein 20.0 H (<10.0) mg/L LDL Cholesterol, Calc (0-99) mg/dL 09/20/16 09/20/16 Range/Units 06:47 06:47 Glucose (74-99) mg/dL Total Creatine Kinase 38 L (55-170) U/L C-Reactive Protein (<10.0) mg/L LDL Cholesterol, Calc 105 H (0-99) mg/dL Diabetes panel 09/19/16 09/20/16 Range/Units 19:37 06:47 Sodium 139 137 (137-145) mmol/L Potassium 4.5 4.7 (3.5-5.1) mmol/L Chloride 100 102 (98-107) mmol/L Carbon Dioxide 29 26 (22-30) mmol/L BUN 14 12 (9-20) mg/dL Creatinine 0.70 0.74 (0.66-1.25) mg/dL Glucose 120 H 85 (74-99) mg/dL Calcium 9.6 9.2 (8.4-10.2) mg/dL AST 21 (17-59) U/L ALT 35 (21-72) U/L Alkaline Phosphatase 84 (38-126) U/L Total Protein 6.9 (6.3-8.2) g/dL Albumin 4.3 (3.5-5.0) g/dL Triglycerides 77 (<150) mg/dL HDL Cholesterol 41 (40-60) mg/dL Calcium panel 09/19/16 09/20/16 Range/Units 19:37 06:47 Calcium 9.6 9.2 (8.4-10.2) mg/dL Albumin 4.3 (3.5-5.0) g/dL Pituitary panel 09/19/16 09/20/16 Range/Units 19:37 06:47 Sodium 139 137 (137-145) mmol/L Potassium 4.5 4.7 (3.5-5.1) mmol/L Chloride 100 102 (98-107) mmol/L Carbon Dioxide 29 26 (22-30) mmol/L BUN 14 12 (9-20) mg/dL Creatinine 0.70 0.74 (0.66-1.25) mg/dL Glucose 120 H 85 (74-99) mg/dL Calcium 9.6 9.2 (8.4-10.2) mg/dL Adrenal panel 09/19/16 09/20/16 Range/Units 19:37 06:47 Sodium 139 137 (137-145) mmol/L Potassium 4.5 4.7 (3.5-5.1) mmol/L Chloride 100 102 (98-107) mmol/L Carbon Dioxide 29 26 (22-30) mmol/L BUN 14 12 (9-20) mg/dL Creatinine 0.70 0.74 (0.66-1.25) mg/dL Glucose 120 H 85 (74-99) mg/dL Calcium 9.6 9.2 (8.4-10.2) mg/dL Total Bilirubin 1.0 (0.2-1.3) mg/dL AST 21 (17-59) U/L ALT 35 (21-72) U/L Alkaline Phosphatase 84 (38-126) U/L Total Protein 6.9 (6.3-8.2) g/dL Albumin 4.3 (3.5-5.0) g/dL - Imaging Chest x-ray: image reviewed EKG: image reviewed Assessment and Plan (1) Chest pain Status: Acute (2) History of prior ablation treatment Status: Acute (3) History of supraventricular tachycardia Status: Acute (4) Hypertension Status: Acute Plan: The patient was seen and examined. Chart/diagnostics reviewed. Agree with Motrin for inflammatory vs. muskuloskeletal pain. Management per cardiology services. Awaiting results of echocardiogram for further recommendations. Will discuss the case with Dr. aVughn. Thank you Dr. Rg for this consult. We will follow the patient with you. Time with Patient: Greater than 30 <Ethan Vaughn - Last Filed: 10/11/16 11:57> Surgical - Exam Vital Signs Temp Pulse Resp BP Pulse Ox 97.3 F L 85 16 143/93 95 09/19/16 14:23 09/19/16 14:23 09/19/16 14:23 09/19/16 14:23 09/19/16 14:23 Results - Labs 09/20/16 06:47 09/20/16 06:47 Assessment and Plan Plan: The patient is a 56-year-old male, well-known to me from a previous admission, who underwent drainage of a pericardial effusion by Dr. Cobian. He returned to the emergency department on this occasion with chest discomfort. Echocardiogram did not reveal a significant pericardial effusion. There is no indication for surgical intervention on my part. Further care to be provided by the primary service.
[2016-09-20] MEDS ORDERED: IBUPROFEN 800 MG TAB PO SCH (10:30)
--- NOTE | 2016-09-20 10:40 | ECHOF ---
Referral Reason:pericardiitis MEASUREMENTS -------- HEIGHT: 152.4 cm WEIGHT: 72.6 kg BP: 135/86 RVIDd: 1.4 cm (< 3.3) IVSd: 1.3 cm (0.6 - 1.1) LVIDd: 4.3 cm (3.9 - 5.3) LVPWd: 1.2 cm (0.6 - 1.1) IVSs: 1.5 cm LVIDs: 3.7 cm LVPWs: 1.3 cm LAESV Index (A-L): 28.93 ml/m Ao Diam: 3.7 cm (2.0 - 3.7) AV Cusp: 2.1 cm (1.5 - 2.6) LA Diam: 3.6 cm (2.7 - 3.8) MV EXCURSION: 19.436 mm (> 18.000) MV EF SLOPE: 103 mm/s (70 - 150) EPSS: 0.3 cm MV E Brooks: 0.82 m/s MV DecT: 229 ms MV A Brooks: 0.60 m/s MV E/A Ratio: 1.37 RAP: 5.00 mmHg RVSP: 18.87 mmHg FINDINGS -------- Sinus rhythm. This was a technically adequate study. There is mild concentric left ventricular hypertrophy. Overall left ventricular systolic function is low-normal with, an EF between 50 - 55 %. The right ventricle is normal in size. Normal LA size by volume 22+/-6 ml/m2. The right atrial size is normal. The aortic valve is trileaflet, and appears structurally normal. No aortic stenosis or regurgitation. Mild mitral regurgitation is present. Mild tricuspid regurgitation present. Right ventricular systolic pressure is normal at < 35 mmHg. There is no evidence of pulmonary hypertension. Trace/mild (physiologic) pulmonic regurgitation. The aortic root size is normal. There is a small, generalized pericardial effusion present. CONCLUSIONS -------- 1. There is mild concentric left ventricular hypertrophy. 2. Overall left ventricular systolic function is low-normal with, an EF between 50 - 55 %. 3. Mild mitral regurgitation is present. 4. Mild tricuspid regurgitation present. 5. Right ventricular systolic pressure is normal at < 35 mmHg. 6. There is no evidence of pulmonary hypertension. 7. Trace/mild (physiologic) pulmonic regurgitation. 8. There is a small, generalized pericardial effusion present. SOCIAL WELFARE RESEARCH WORKER: Sandhya Pinto RDCS
[2016-09-20] MEDS ORDERED: MULTIVITAMINS, THERA 1 EACH TAB PO SCH (12:00)
[2016-09-20 12:41] VITALS: BP 125/73; PULSE 80; TEMP 97.9
--- NOTE | 2016-09-22 11:49 | DS ---
FINAL DIAGNOSES: 1. Chest pain, possible acute on chronic pericarditis, possibly musculoskeletal. 2. History of recent cardiac ablation for SVT and pericardial effusion. 3. Hypertension. 4. Hyperlipidemia. 5. History of asthma. 6. History of varicose veins. DISCHARGE DISPOSITION: The patient is being discharged in stable condition with guarded prognosis. HISTORY OF PRESENT ILLNESS: This 56-year-old gentleman with past medical history of multiple medical problems was admitted to the hospital with chest pain. Myocardial infarction was ruled out. The pain is mostly pleuritic in nature. Dr. Rg saw the patient. The patient improved significantly. Cardiothoracic surgery also saw the patient. On exam, vital signs are stable. Cardiovascular: S1, S2. Abdomen soft. Nontender. Nervous system: No focal deficits. DISCHARGE ADVICE AND MEDICATIONS: 1. Diet is cardiac. 2. Activity limited until follow up. 3. Follow-up with in two to three days. 4. Follow-up with Dr. Vaughn in one week. Medications are: 1. Lipitor 80 mg po daily. 2. Vitamin B12 500 mcg po daily. 3. Motrin 800 mg po t.i.d. 4. Multivitamins one po daily. 5. omega 3 daily 6. Protonix 40 mg po b.i.d. 7. Co-Enzyme Q 200 mg po b.i.d. 8. verapamil er 120 mg po daily. Follow-up labs with Dr. Taylor, CBC, BMP. Follow with Cardiology as recommended. MTDD
== END 2016-09-20 17:15 | disposition home or self-care (01) ==
LOC: EC 14:17 → 3OBS 15:00
PROVIDERS: ADMIT Hospitalist; ATTEND Hospitalist
DX: R07.9 Chest pain, unspecified (principal); I10 Essential (primary) hypertension; E78.5 Hyperlipidemia, unspecified; J45.909 Unspecified asthma, uncomplicated; Z86.718 Personal history of other venous thrombosis and embolism; Z79.82 Long term (current) use of aspirin; Z88.0 Allergy status to penicillin; Z80.9 Family history of malignant neoplasm, unspecified
CPT/HCPCS: 99291; 96374; 96376; 94760; 93005; 93306; 80061; 80053; 80048; 85652; 82550 ×2; 82553 ×2; 84484 ×2; 85025 ×2; 86140; 71010; G0378 ×2; J2270 ×2